=== PATIENT | male | born 1945 | race Caucasian/White ===

== ENCOUNTER → 2017-01-03 | Outpatient (CLI) | payer OTHER ==
[~2017-01-03] MED LIST: ASPI81TA28 PO; CALC-393 PO; CLR10 PO; DLTCD/240 PO; IBUP-103 PO; IRBE1TAB48 PO; PRAV40TA2 PO; TPRSR/100 PO; TRIA37.5 PO
[2017-01-03 17:35] LABS: BASO % 0.2 %; BASO ABS # 0.02 K/uL (0-0.2); COMPLETE YES; EOS % 2.2 %; HEMATOCRIT 45.9 % (42-52); IG% 0.2 %; LYMPH % 25.1 %; LYMPH ABS # 2.04 K/uL (1.2-3.4); MEAN CELL VOLUME 90.2 fL (80-100); MEAN CORPUSCULAR HEMOGLOBIN 29.5 pg (25-34); MEAN CORPUSCULAR HGB CONC 32.7 g/dl (32-36); MEAN PLATELET VOLUME 9.4 fL (7.4-10.4); MONO % 7.7 %; NEUT % 64.6 %; PLATELET COUNT 271 K/uL (130-400); RED BLOOD COUNT 5.09 M/uL (4.7-6.1); WHITE BLOOD COUNT 8.13 K/uL (4.8-10.8)
[2017-01-03 17:45] LABS: URINE APPEARANCE CLEAR (CLEAR); URINE BILIRUBIN NEG (NEG); URINE COLOR YELLOW; URINE NITRITE NEG (NEG); URINE PH 7.5 (4.5-7.5); URINE SPECIFIC GRAVITY 1.015 (1.000-1.030); UROBILINOGEN NEG (NEG); ZZUR CULT IF INDIC CLEAN CATCH NO
[2017-01-03 17:50] LABS: MANUAL MICROSCOPIC REQUIRED? NO; REVIEW REQ? NO
[2017-01-03 18:22] LABS: RATIO 17.6 mcg/mg (0-30.0)
[2017-01-03 19:11] LABS: ALT/SGPT 26 U/L (12-78); AST/SGOT 16 U/L (15-37); BLOOD UREA NITROGEN 19 mg/dl (7-18); BUN/CREATININE RATIO 14.9 (10-20); CALCIUM 9.6 mg/dl (8.5-10.1); CARBON DIOXIDE 31 mmol/L (21-32); CHLORIDE 101 mmol/L (98-107); GLUCOSE 105 mg/dl (70-99); POTASSIUM 4.3 mmol/L (3.5-5.1); SODIUM 140 mmol/L (136-145)
[2017-01-03 19:13] LABS: ALB/GLOB RATIO 0.9 (0.9-2); ALKALINE PHOSPHATASE 93 U/L (45-117); CHOLESTEROL 132 mg/dl (0-200); CHOLESTEROL/HDL RATIO 3.1; HDL CHOLESTEROL 42 mg/dl; LDL CHOLESTEROL CALCULATED 56 mg/dl; TRIGLYCERIDES 168 mg/dl (0-150); VERY LOW DENSITY LIPOPROT CALC 34 mg/dl
[2017-01-04 06:31] LABS: ESTIMATED AVERAGE GLUCOSE 143 mg/dl; HA1C FLAG Normal (Normal)
--- NOTE | 2017-01-08 12:51 | CODING QUERY MEDICAL NECESSITY ---
SUPPORTING DIAGNOSIS NEEDED A supporting diagnosis is required for the test/procedure performed on this patient in order for us to be reimbursed by the patient's insurance. Please provide a supporting diagnosis for the following test/procedure listed below next to the test name along with your signature. *If there is no additional diagnosis for this patient that would support the following test/procedure please document that below next to the test/procedure. Test(s)/Procedure(s) that require a supporting diagnosis: * HEMOGLOBIN A1C DIAGNOSIS: Provider Signature: Date: Thank you Heather Ledesma [employer] Once completed, please kindly fax back to [phone] For questions please call [phone]
== END | disposition home or self-care (01) ==
LOC: C.LABBFT 11:43
PROVIDERS: ATTEND Internal Medicine
DX: I10 Essential (primary) hypertension (principal); E78.00 Pure hypercholesterolemia, unspecified; E11.9 Type 2 diabetes mellitus without complications

== ENCOUNTER 2017-06-28 11:03 | Emergency (ER) | payer OTHER ==
[~2017-06-28] VITALS: Ht 162.6 cm; Wt 149.0 kg
[2017-06-28 11:06] VITALS: TEMP 36.7; Ht 162.6 cm; Wt 149.0 kg
--- NOTE | 2017-06-28 12:13 | EMERGENCY ROOM VISIT NOTE ---
History Report prepared by Sohail: Enrrique Prince Under the Supervision of: Dr. Alden Adkins M.D. First contact with patient: 12:00 Chief Complaint: DIZZY Stated Complaint: DIZZY AND LIGHT HEADED Nursing Triage Summary: pt to the ED with c/o dizziness that started at 10am today no numbness no tingling no c/o weakness no confusion History of Present Illness The patient is a 71 year old male who presents to the Emergency Room with complaints of dizziness that began 2 hours ago and had difficulty walking in a straight line. He denies headache, chest pain, shortness of breath, dysuria, and weakness in limbs. The onset was sudden. Of note, the patient is on Aspirin , Diazepam, and Valium. He denies a history of DM. He reports a history of high blood pressure. He saw his PCP 5 months ago. He is retired and lives with his and enjoys playing with his grandchildren. Source of History: patient Onset: 2 hours ago Position: head Timing: constant Associated Symptoms: No headache, No chest pain, No SOB, No urinary symptoms , No weakness Review of Systems See HPI for pertinent positives & negatives. A total of 10 systems reviewed and were otherwise negative. Past Medical & Surgical Medical Problems: (1) Hypertension Social History Smoking Status: Never Smoker Drug Use: none Marital Status: Housing Status: lives with significant other Occupation Status: retired Current/Historical Medications Scheduled Aspirin (Aspirin Ec), 81 MG PO QAM Calcium Carbonate (Calcium), 600 MG PO QAM Diltiazem Hcl (Diltiazem Cd), 240 MG PO DAILY Irbesartan (Irbesartan), 150 MG PO DAILY Loratadine (Claritin), 10 MG PO DAILY Metoprolol Succinate (Metoprolol Succinate ER), 100 MG PO DAILY Pravastatin Sodium (Pravastatin Sodium), 40 MG PO HS Triamterene/Hctz (Dyazide 37.5MG/25MG), 1 CAP PO DAILY Scheduled PRN Ibuprofen Tab (Advil), 800 MG PO Q8 PRN for Pain Allergies Coded Allergies: Oxycodone (Verified Allergy, Severe, RASH-"ITCH ALL OVER", 06/28/17) Hydrocodone (Verified Allergy, Unknown, RASH-"ITCH ALL OVER", 06/28/17) Physical Exam Vital Signs Date Time Temp Pulse Resp B/P (MAP) Pulse Ox O2 Delivery O2 Flow Rate FiO2 06/28/17 13:21 82 18 138/63 98 06/28/17 12:46 54 20 138/63 96 06/28/17 11:19 69 06/28/17 11:06 36.7 71 18 164/84 95 Room Air Physical Exam GENERAL: Patient is well appearing and in no acute distress. Overweight. HEENT: No acute trauma, normocephalic atraumatic, mucous membranes moist, no nasal congestion, no scleral icterus. NECK: No stridor, no adenopathy, no meningismus, trachea is midline. LUNGS: No dyspnea. Clear to auscultation and equal bilaterally. No wheeze, no rhonchi. HEART: Regular rate and rhythm. No murmurs, rubs, gallops appreciated. ABDOMEN: Soft, nontender, bowel sounds positive, no masses appreciated, no peritonitis. BACK: No midline tenderness, no CVA tenderness EXTREMITIES: Normal motion all extremities, no cyanosis, no edema. NEUROLOGIC: Alert and oriented, no acute motor or sensory deficits, no focal weakness, cranial nerves grossly intact. SKIN: No rash, no jaundice, no diaphoresis. Medical Decision & Procedures Laboratory Results 06/28/17 11:25 Red Blood Count 4.92, Mean Corpuscular Volume 91.3, Mean Corpuscular Hemoglobin 29.9, Mean Corpuscular Hemoglobin Concent 32.7, Mean Platelet Volume 9.4, Neutrophils (%) (Auto) 72.5, Lymphocytes (%) (Auto) 18.5, Monocytes (%) (Auto) 6.7, Eosinophils (%) (Auto) 2.0, Basophils (%) (Auto) 0.2, Neutrophils # (Auto) 5.80, Lymphocytes # (Auto) 1.48, Monocytes # (Auto) 0.54, Eosinophils # (Auto) 0.16, Basophils # (Auto) 0.02 06/28/17 11:25 Test 06/28/17 11:25 White Blood Count 8.01 K/uL (4.8-10.8) Red Blood Count 4.92 M/uL (4.7-6.1) Hemoglobin 14.7 g/dL (14.0-18.0) Hematocrit 44.9 % (42-52) Mean Corpuscular Volume 91.3 fL (80-100) Mean Corpuscular Hemoglobin 29.9 pg (25-34) Mean Corpuscular Hemoglobin Concent 32.7 g/dl (32-36) Platelet Count 257 K/uL (130-400) Mean Platelet Volume 9.4 fL (7.4-10.4) Neutrophils (%) (Auto) 72.5 % Lymphocytes (%) (Auto) 18.5 % Monocytes (%) (Auto) 6.7 % Eosinophils (%) (Auto) 2.0 % Basophils (%) (Auto) 0.2 % Neutrophils # (Auto) 5.80 K/uL (1.4-6.5) Lymphocytes # (Auto) 1.48 K/uL (1.2-3.4) Monocytes # (Auto) 0.54 K/uL (0.11-0.59) Eosinophils # (Auto) 0.16 K/uL (0-0.5) Basophils # (Auto) 0.02 K/uL (0-0.2) RDW Standard Deviation 46.4 fL (36.4-46.3) RDW Coefficient of Variation 13.8 % (11.5-14.5) Immature Granulocyte % (Auto) 0.1 % Immature Granulocyte # (Auto) 0.01 K/uL (0.00-0.02) Anion Gap 3.0 mmol/L (3-11) Est Creatinine Clear Calc Drug Dose 67.6 ml/min Estimated GFR () 62.2 Estimated GFR (Non- 53.6 BUN/Creatinine Ratio 22.4 (10-20) Calcium Level 8.9 mg/dl (8.5-10.1) Troponin I 0.019 ng/ml (0-0.045) Laboratory results as reviewed by me. Medical Decision Differential diagnoses include Benign positional vertigo, Dehydration, Hypovolemia, Anemia, Tumor, Infection, Hypoglycemia, Electrolyte abnormalities, Cardiac sources, Intracerebral event, Toxicologic, Neurologic, as well as others were entertained. 71 yr old male arrived for evaluation of episode of dizziness with some ambulatory disfunction during it. No other symptoms. No vertiginous like symptoms. Currently asymptomatic and feeling well. Admits hadn't eaten this morning prior to this occurring. Looks well with benign exam. Discussed standard of care and he adamantly refuses CT head nor MRI brain given he wishes open MRI with sedation which I can no offer in ED. Labs look good, EKG OK, and patient in no distress. I do not feel this is ACS, PE, dissection. I made it clear to him that I am concerned this might have been TIA and that standard would be to get imaging which he makes clear he will not have done. He also makes clear he is going home. I stressed very heavily need to discuss with PCP and possibly further imaging. I made ti clear he can return at any time if worsening or other concerns. Impression Primary Impression: Dizziness Scribe Attestation The scribe's documentation has been prepared under my direction and personally reviewed by me in its entirety. I confirm that the note above accurately reflects all work, treatment, procedures, and medical decision making performed by me. Departure Information Dispostion Home / Self-Care Referrals Vince Arias M.D. (PCP) Patient Instructions ED Dizziness [facility], My [facility] Additional Instructions It is important you follow up with your primary provider in the next few days for further discussion of your symptoms and what further studies need to be done. Your blood pressure was elevated during this visit. This is quite common in many people who are being evaluated in the Emergency Department for many reasons. However, it is important that you have your Primary Care Provider recheck your blood pressure and discuss whether treatment will be needed. assisted elevated blood pressure can lead to strokes, heart attacks, kidney failure amongst other medical issues. If you develop severe headaches, chest pain, weakness in arms or legs, or other concerning symptoms call 911.
[2017-06-28 12:23] LABS: BASO % 0.2 %; BASO ABS # 0.02 K/uL (0-0.2); COMPLETE YES; HEMATOCRIT 44.9 % (42-52); IG% 0.1 %; LYMPH % 18.5 %; LYMPH ABS # 1.48 K/uL (1.2-3.4); MEAN CELL VOLUME 91.3 fL (80-100); MEAN CORPUSCULAR HEMOGLOBIN 29.9 pg (25-34); MEAN CORPUSCULAR HGB CONC 32.7 g/dl (32-36); MEAN PLATELET VOLUME 9.4 fL (7.4-10.4); MONO % 6.7 %; NEUT % 72.5 %; PLATELET COUNT 257 K/uL (130-400); RED BLOOD COUNT 4.92 M/uL (4.7-6.1); WHITE BLOOD COUNT 8.01 K/uL (4.8-10.8)
--- NOTE | 2017-06-28 12:37 | DIAGNOSTIC IMAGING REPORT ---
CHEST ONE VIEW PORTABLE CLINICAL HISTORY: Generalized Weakness dyspnea COMPARISON STUDY: 04/16/2016 FINDINGS: Mild stable cardiomegaly. Lungs are clear. Mild chronic elevation right hemidiaphragm. IMPRESSION: Chronic change. No acute process. The above report was generated using voice recognition software. It may contain grammatical, syntax or spelling errors. Electronically signed by: Efe Vyas M.D. 06/28/2017 12:36 PM Dictated Date/Time: 06/28/2017 12:35 PM
[2017-06-28 12:41] LABS: BUN/CREATININE RATIO 22.4 (10-20); CALCIUM 8.9 mg/dl (8.5-10.1); CREATININE 1.31 mg/dl (0.60-1.40); POTASSIUM 3.8 mmol/L (3.5-5.1)
[2017-06-28 13:21] VITALS: BP 138/63; PULSE 82; O2SAT 98
== END 2017-06-28 13:22 | disposition home or self-care (01) ==
LOC: C.EDB 11:05 → C.EDA 13:22
DX: R42 Dizziness and giddiness (principal); I10 Essential (primary) hypertension; Z79.82 Long term (current) use of aspirin

== ENCOUNTER 2017-07-02 09:36 | Emergency (ER) | payer OTHER ==
[~2017-07-02] VITALS: Ht 162.6 cm; Wt 149.5 kg
[2017-07-02 09:38] VITALS: TEMP 36.4; Ht 162.6 cm; Wt 149.5 kg
[2017-07-02] MEDS ORDERED: SODIUM CHLORIDE 0.9% 1000ML 1,000 ML IV STA (10:22)
[2017-07-02] MEDS ORDERED: MECLIZINE HCL 25 MG TAB PO STA (10:22)
--- NOTE | 2017-07-02 10:32 | EMERGENCY ROOM VISIT NOTE ---
History Report prepared by Sohail: Clay Khan Under the Supervision of: Dr. Anthony Wren M.D. First contact with patient: 10:17 Chief Complaint: DIZZY Stated Complaint: DIZZY Nursing Triage Summary: Pt reports this morning he was dizzy and nauseous, worsens when walking. Reports he was here for dizziness and didn't get his CT. Pt states "I just want that, no blood work at all because that was fine on ." History of Present Illness The patient is a 71 year old male who presents to the Emergency Room with complaints of dizziness that began this morning. He was seen in the ER four days ago for these same symptoms. They recommended a CT scan of his head, but he refused because he is claustrophobic. He was discharged and felt better for the next couple of days. However, this morning he woke up feeling the same way he did last week. He describes his dizziness as lightheadedness that is associated with walking. He is also having some nausea which made him experience a small episode of emesis this morning. He denies any fevers, chills , cough, headache, chest pain, shortness of breath, abdominal pain, back pain, diarrhea, weakness, numbness, melena, hematochezia, or abnormal urinary symptoms. While he is lying down, he does not experience his dizziness. He also denies an changes to his vision or hearing as well. He has never had a heart attack or a stroke. He is currently taking Aspirin PO daily without any other blood thinners. Source of History: patient Onset: this morning Position: other (Global) Symptom Intensity: moderate Quality: other (Dizziness) Timing: constant Modifying Factors (Worsening): movement Modifying Factors (Relieving): rest Associated Symptoms: + nausea, + vomiting, No fevers, No chills, No headache , No cough, No chest pain, No SOB, No abdominal pain, No back pain, No melena, No diarrhea, No urinary symptoms, No weakness, No numbness Note: hH denies any changes to his vision and hearing. Review of Systems See HPI for pertinent positives and negatives. A total of ten systems were reviewed and were otherwise negative. Past Medical & Surgical Medical Problems: (1) Hypertension Family History Omitted secondary to the patient's age. Social History Smoking Status: Never Smoker Smokeless Tobacco Use: No Drug Use: none Marital Status: Housing Status: lives with significant other Occupation Status: retired Current/Historical Medications Scheduled Aspirin (Aspirin Ec), 81 MG PO QAM Calcium Carbonate (Calcium), 600 MG PO QAM Diltiazem Hcl (Diltiazem Cd), 240 MG PO DAILY Irbesartan (Irbesartan), 150 MG PO DAILY Loratadine (Claritin), 10 MG PO DAILY Metoprolol Succinate (Metoprolol Succinate ER), 100 MG PO DAILY Pravastatin Sodium (Pravastatin Sodium), 40 MG PO HS Triamterene/Hctz (Dyazide 37.5MG/25MG), 1 CAP PO DAILY Scheduled PRN Ibuprofen Tab (Advil), 800 MG PO Q8 PRN for Pain Meclizine Hcl (Meclizine Hcl), 25 MG PO TID PRN for Dizziness Allergies Coded Allergies: Oxycodone (Verified Allergy, Severe, RASH-"ITCH ALL OVER", 07/02/17) Hydrocodone (Verified Allergy, Unknown, RASH-"ITCH ALL OVER", 07/02/17) Physical Exam Vital Signs Date Time Temp Pulse Resp B/P (MAP) Pulse Ox O2 Delivery O2 Flow Rate FiO2 07/02/17 16:52 58 16 146/84 95 07/02/17 16:39 58 16 146/84 95 Room Air 07/02/17 14:42 60 146/97 95 Room Air 07/02/17 13:10 71 20 189/77 95 Room Air 07/02/17 11:38 Room Air 07/02/17 11:12 62 17 137/62 95 Room Air 07/02/17 10:04 75 07/02/17 09:38 36.4 78 16 186/87 94 Room Air Physical Exam GENERAL: Awake, alert, well-appearing, in no distress HENT: Normocephalic, atraumatic. Oropharynx reveals dry mucous membranes. EYES: Normal conjunctiva. Sclera non-icteric. NECK: Supple. No nuchal rigidity. FROM. No JVD. RESPIRATORY: Clear to auscultation. CARDIAC: Regular rate, normal rhythm. Extremities warm and well perfused. Pulses equal. ABDOMEN: Soft, obese, non-distended. No tenderness to palpation. No rebound or guarding. No masses. RECTAL: Deferred. MUSCULOSKELETAL: Chest examination reveals no tenderness. The back is symmetrical on inspection without obvious abnormality. There is no CVA tenderness to palpation. No joint edema. LOWER EXTREMITIES: Calves are equal size bilaterally and non-tender. No edema. No discoloration. NEURO: Normal sensorium. No sensory or motor deficits noted. SKIN: No rash or jaundice noted. Medical Decision & Procedures ER Provider Diagnostic Interpretation: Radiology results as stated below per my review and radiologist interpretation: ANGIOGRAPHY HEAD COMBO CLINICAL HISTORY: Dizziness. Ataxia. COMPARISON STUDY: No previous studies for comparison. TECHNIQUE: Unenhanced and arterial phase imaging of the head was performed. Injection of 94 cc Optiray 320 IV was uneventful. Sagittal and coronal reconstructions were viewed as well as maximal intensity projections on an independent 3-D workstation. FINDINGS: No acute intracranial hemorrhage, midline shift or mass effect is present. Ventricular system is normal. Basilar cisterns are patent. There are no extra-axial collections. Craven-white differentiation is maintained. There are no findings to suggest acute dural sinus thrombosis or acute territorial infarct. There are no significant calvarial abnormalities. Visualized portions of the sinuses and mastoid air cells are clear. The bilateral M1, M2, A1 and A2 segments are patent. There is moderate atherosclerotic plaque within the bilateral cavernous carotids without significant stenosis. Note is made of a right posterior to indicating and an anterior communicating artery. No abrupt vessel cut off is identified. The right vertebral artery is diminutive. Left vertebral artery is dominant. Basilar artery and bilateral posterior cerebral arteries are patent. IMPRESSION: 1. No acute intracranial findings. 2. No intracranial aneurysm or abrupt vessel cut off. 3. Dominant left vertebral artery. Diminutive right vertebral artery, likely on a congenital basis. Electronically signed by: Minor Potter M.D. 07/02/2017 2:09 PM Dictated Date/Time: 07/02/2017 1:58 PM CHEST ONE VIEW PORTABLE CLINICAL HISTORY: 71 years-old Male presenting with CHEST PAIN. TECHNIQUE: Portable upright AP view of the chest was obtained. COMPARISON: 06/28/2017. FINDINGS: Cardiac silhouette top normal in size, unchanged. Mild pulmonary vascular prominence in the upper lobes, slightly increased from prior. Suggestion of mild bronchial wall cuffing. Elevation of the right hemidiaphragm, unchanged. Subtle vague perihilar opacities greater on the left. No large pleural effusion or pneumothorax. Degenerative changes of the right glenohumeral and bilateral acromioclavicular joints. Upper abdomen normal. IMPRESSION: 1. Suggestion of mild volume overload with early pulmonary edema. Infection in the left lower lobe cannot be excluded. Electronically signed by: Elias Mcgregor M.D. 07/02/2017 10:55 AM Dictated Date/Time: 07/02/2017 10:53 AM NECK ANGIO WITH CONTRAST CLINICAL HISTORY: 71 years-old Male presenting with dizziness and ataxia. TECHNIQUE: Multidetector CT angiography of the neck was performed after the administration of intravenous contrast. 3-D volumetric and/or maximum intensity projection (MIP) images were subsequently reconstructed for review. IV contrast: 94 mL of Optiray 320. A dose lowering technique was used consistent with the principles of ALARA (as low as reasonably achievable). Stenosis measurements were based on NASCET-like criteria. COMPARISON: None. CT DOSE (mGy.cm): The estimated cumulative dose is 1360.68 inclusive of the CTA head. 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 Three-vessel aortic arch with atherosclerosis of the arch though patent origins of the branch vessels. Bilateral common carotid arteries patent. Calcified and noncalcified atherosclerotic plaque noted at the bilateral carotid bulbs, left greater than right. Narrowing of the proximal right internal carotid artery with low density atherosclerotic plaque resulting in a minimum diameter of 2.7 mm in comparison to the normal distal diameter of 6.1 mm (55% stenosis) the remainder of the right internal carotid artery is widely patent though tortuous at the skull base. Only minimal narrowing of the proximal left internal carotid artery despite the presence of greater atherosclerotic plaque at the left carotid bulb. Tortuosity of the distal left ICA at the skull base also noted. Left dominant vertebral artery. The bilateral vertebral arteries have patent origins and courses. The right vertebral artery contribute to the basilar artery, which is patent. No evidence of dissection or aneurysm. Soft tissues of the neck demonstrate no lymphadenopathy and are within normal limits. Limited intracranial evaluation within normal limits. Paranasal sinuses and mastoid air cells clear. Degenerative changes of the cervical spine. Lung apices clear. IMPRESSION: No evidence of dissection or aneurysm in the cervical vessels. 55% stenosis of the proximal right ICA with the remainder of the cervical vessels widely patent. Electronically signed by: Elias Mcgregor M.D. 07/02/2017 2:07 PM Dictated Date/Time: 07/02/2017 2:02 PM Laboratory Results 07/02/17 10:55 Red Blood Count 5.05, Mean Corpuscular Volume 89.7, Mean Corpuscular Hemoglobin 29.5, Mean Corpuscular Hemoglobin Concent 32.9, Mean Platelet Volume 9.1, Neutrophils (%) (Auto) 74.5, Lymphocytes (%) (Auto) 15.4, Monocytes (%) (Auto) 8.4, Eosinophils (%) (Auto) 1.1, Basophils (%) (Auto) 0.1, Neutrophils # (Auto) 5.84, Lymphocytes # (Auto) 1.21, Monocytes # (Auto) 0.66, Eosinophils # (Auto) 0.09, Basophils # (Auto) 0.01 07/02/17 10:55 Test 07/02/17 10:55 White Blood Count 7.85 K/uL (4.8-10.8) Red Blood Count 5.05 M/uL (4.7-6.1) Hemoglobin 14.9 g/dL (14.0-18.0) Hematocrit 45.3 % (42-52) Mean Corpuscular Volume 89.7 fL (80-100) Mean Corpuscular Hemoglobin 29.5 pg (25-34) Mean Corpuscular Hemoglobin Concent 32.9 g/dl (32-36) Platelet Count 250 K/uL (130-400) Mean Platelet Volume 9.1 fL (7.4-10.4) Neutrophils (%) (Auto) 74.5 % Lymphocytes (%) (Auto) 15.4 % Monocytes (%) (Auto) 8.4 % Eosinophils (%) (Auto) 1.1 % Basophils (%) (Auto) 0.1 % Neutrophils # (Auto) 5.84 K/uL (1.4-6.5) Lymphocytes # (Auto) 1.21 K/uL (1.2-3.4) Monocytes # (Auto) 0.66 K/uL (0.11-0.59) Eosinophils # (Auto) 0.09 K/uL (0-0.5) Basophils # (Auto) 0.01 K/uL (0-0.2) RDW Standard Deviation 44.9 fL (36.4-46.3) RDW Coefficient of Variation 13.8 % (11.5-14.5) Immature Granulocyte % (Auto) 0.5 % Immature Granulocyte # (Auto) 0.04 K/uL (0.00-0.02) Urine Color YELLOW Urine Appearance CLEAR (CLEAR) Urine pH 5.0 (4.5-7.5) Urine Specific [place] 1.016 (1.000-1.030) Urine Protein NEG (NEG) Urine Glucose (UA) NEG (NEG) Urine Ketones NEG (NEG) Urine Occult Blood NEG (NEG) Urine Nitrite NEG (NEG) Urine Bilirubin NEG (NEG) Urine Urobilinogen NEG (NEG) Urine Leukocyte Esterase SMALL (NEG) Urine WBC (Auto) 1-5 /hpf (0-5) Urine RBC (Auto) 0-4 /hpf (0-4) Urine Hyaline Casts (Auto) 0 /lpf (0-5) Urine Epithelial Cells (Auto) 10-20 /lpf (0-5) Urine Bacteria (Auto) NEG (NEG) Anion Gap 6.0 mmol/L (3-11) Est Creatinine Clear Calc Drug Dose 66.2 ml/min Estimated GFR () 60.5 Estimated GFR (Non- 52.2 BUN/Creatinine Ratio 13.2 (10-20) Calcium Level 8.7 mg/dl (8.5-10.1) Total Bilirubin 0.3 mg/dl (0.2-1) Direct Bilirubin < 0.1 mg/dl (0-0.2) Aspartate Amino Transf (AST/SGOT) 13 U/L (15-37) Alanine Aminotransferase (ALT/SGPT) 26 U/L (12-78) Alkaline Phosphatase 115 U/L (45-117) Troponin I < 0.015 ng/ml (0-0.045) Pro-B-Type Natriuretic Peptide 63 pg/ml (0-900) Total Protein 7.7 gm/dl (6.4-8.2) Albumin 3.3 gm/dl (3.4-5.0) Lipase 98 U/L (73-393) Laboratory results reviewed by me Medications Administered Medications (Trade) Dose Ordered Sig/Frank Route Start Time Stop Time Status Last Admin Dose Admin Sodium Chloride 1,000 ml @ 999 mls/hr Q1H1M STAT IV 07/02/17 10:22 07/02/17 11:22 DC 07/02/17 11:19 999 MLS/HR Meclizine HCl (Antivert Tab) 25 mg NOW STAT PO 07/02/17 10:22 07/02/17 10:28 DC 07/02/17 11:18 25 MG Lorazepam (Ativan Tab) 0.5 mg NOW STAT SL 07/02/17 12:24 07/02/17 12:25 DC 07/02/17 12:52 0.5 MG ECG Indication: other (Dizziness) Rate (beats per minute): 61 Rhythm: sinus rhythm Findings: 1st degree AV block, no acute ischemic change, other (normal axis) ED Course 1017: The patient was evaluated in room B5. A complete history and physical exam was performed. 1652: I reevaluated the patient. Discussed results and discharge instructions: He verbalized understanding and agreement. The patient is ready for discharge. Medical Decision I reviewed the patient's past medical history, medications, and the nursing notes as described above. Differential diagnosis includes but is not limited to: peripheral vs central vertigo, dehydration, electrolyte abnormal, arrhythmia, ACS, pneumonia, bronchitis, and UTI. The patient is a 71-year-old gentleman who presents to the emergency department. Episode of dizziness which began this morning at being seen in emergency department several days ago for the same per history of present illness. The patient's prior visit the patient declined CT and MRI because he has severe claustrophobia. Today patient is agreeable for CT scan but not MRI. CTA of the head and neck unremarkable for any infarcts or significant large vessel occlusion. Labs unremarkable including WBC, troponin, BNP within normal limits. Chest x-ray read as a questionable volume overload however given normal BNP and lack of respiratory symptoms and normal saturation on RA it is reasonable for the patient to follow up with his PCP regarding these findings. Moreover, patient feeling improved after IV fluids and meclizine. Findings and plan for follow-up reviewed with patient. Patient agreeable and d/c'd per discharge instructions. Medication Reconcilliation Current Medication List: was personally reviewed by me Blood Pressure Screening Patient's blood pressure: Elevated blood pressure Blood pressure disposition: Elevated BP felt to be situational Impression Primary Impression: Dizziness Scribe Attestation The scribe's documentation has been prepared under my direction and personally reviewed by me in its entirety. I confirm that the note above accurately reflects all work, treatment, procedures, and medical decision making performed by me. Departure Information Dispostion Home / Self-Care Prescriptions Meclizine Hcl (MECLIZINE HCL) 25 Mg Tab 25 MG PO TID Y for Dizziness, #21 TAB Prov: Anthony Wren M.D. 07/02/17 Referrals Vince Arias M.D. (PCP) Forms HOME CARE DOCUMENTATION FORM, IMPORTANT VISIT INFORMATION Patient Instructions Dizziness Balance Probs Fainting, My [facility] [employer] Additional Instructions Please follow up with your primary care physician in the next 1-3 days for re- evaluation. Your CT scan did show some vessel narrowing but no significant narrowing. The cause of your symptoms is unclear at this time however may be related to vertigo. Otherwise, your exam, EKG, chest xray, CTA of your head and neck, and lab results did not show signs of an emergent condition at this time. Meclizine as needed for dizziness/vertigo symptoms. Return to the emergency department for worsening symptoms as described in the accompanying instructions. ---- NECK ANGIO WITH CONTRAST CLINICAL HISTORY: 71 years-old Male presenting with dizziness and ataxia. TECHNIQUE: Multidetector CT angiography of the neck was performed after the administration of intravenous contrast. 3-D volumetric and/or maximum intensity projection (MIP) images were subsequently reconstructed for review. IV contrast: 94 mL of Optiray 320. A dose lowering technique was used consistent with the principles of ALARA (as low as reasonably achievable). Stenosis measurements were based on NASCET-like criteria. COMPARISON: None. CT DOSE (mGy.cm): The estimated cumulative dose is 1360.68 inclusive of the CTA head. 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 Three-vessel aortic arch with atherosclerosis of the arch though patent origins of the branch vessels. Bilateral common carotid arteries patent. Calcified and noncalcified atherosclerotic plaque noted at the bilateral carotid bulbs, left greater than right. Narrowing of the proximal right internal carotid artery with low density atherosclerotic plaque resulting in a minimum diameter of 2.7 mm in comparison to the normal distal diameter of 6.1 mm (55% stenosis) the remainder of the right internal carotid artery is widely patent though tortuous at the skull base. Only minimal narrowing of the proximal left internal carotid artery despite the presence of greater atherosclerotic plaque at the left carotid bulb. Tortuosity of the distal left ICA at the skull base also noted. Left dominant vertebral artery. The bilateral vertebral arteries have patent origins and courses. The right vertebral artery contribute to the basilar artery, which is patent. No evidence of dissection or aneurysm. Soft tissues of the neck demonstrate no lymphadenopathy and are within normal limits. Limited intracranial evaluation within normal limits. Paranasal sinuses and mastoid air cells clear. Degenerative changes of the cervical spine. Lung apices clear.
--- NOTE | 2017-07-02 10:56 | DIAGNOSTIC IMAGING REPORT ---
CHEST ONE VIEW PORTABLE CLINICAL HISTORY: 71 years-old Male presenting with CHEST PAIN. TECHNIQUE: Portable upright AP view of the chest was obtained. COMPARISON: 06/28/2017. FINDINGS: Cardiac silhouette top normal in size, unchanged. Mild pulmonary vascular prominence in the upper lobes, slightly increased from prior. Suggestion of mild bronchial wall cuffing. Elevation of the right hemidiaphragm, unchanged. Subtle vague perihilar opacities greater on the left. No large pleural effusion or pneumothorax. Degenerative changes of the right glenohumeral and bilateral acromioclavicular joints. Upper abdomen normal. IMPRESSION: 1. Suggestion of mild volume overload with early pulmonary edema. Infection in the left lower lobe cannot be excluded. Electronically signed by: Elias Mcgregor M.D. 07/02/2017 10:55 AM Dictated Date/Time: 07/02/2017 10:53 AM
[2017-07-02 11:27] LABS: BASO % 0.1 %; BASO ABS # 0.01 K/uL (0-0.2); COMPLETE YES; EOS % 1.1 %; HEMATOCRIT 45.3 % (42-52); IG% 0.5 %; LYMPH % 15.4 %; LYMPH ABS # 1.21 K/uL (1.2-3.4); MEAN CELL VOLUME 89.7 fL (80-100); MEAN CORPUSCULAR HEMOGLOBIN 29.5 pg (25-34); MEAN CORPUSCULAR HGB CONC 32.9 g/dl (32-36); MEAN PLATELET VOLUME 9.1 fL (7.4-10.4); MONO % 8.4 %; NEUT % 74.5 %; PLATELET COUNT 250 K/uL (130-400); RED BLOOD COUNT 5.05 M/uL (4.7-6.1); WHITE BLOOD COUNT 7.85 K/uL (4.8-10.8)
[2017-07-02 11:43] LABS: ALT/SGPT 26 U/L (12-78); AST/SGOT 13 U/L (15-37); BLOOD UREA NITROGEN 18 mg/dl (7-18); BUN/CREATININE RATIO 13.2 (10-20); CALCIUM 8.7 mg/dl (8.5-10.1); CARBON DIOXIDE 31 mmol/L (21-32); CHLORIDE 95 mmol/L (98-107); CREATININE 1.34 mg/dl (0.60-1.40); GLUCOSE 160 mg/dl (70-99); POTASSIUM 3.8 mmol/L (3.5-5.1); SODIUM 132 mmol/L (136-145)
[2017-07-02 11:48] LABS: ALKALINE PHOSPHATASE 115 U/L (45-117)
[2017-07-02] MEDS ORDERED: LORAZEPAM 0.5 MG TAB SL STA (12:24)
[2017-07-02 12:29] LABS: URINE APPEARANCE CLEAR (CLEAR); URINE BILIRUBIN NEG (NEG); URINE COLOR YELLOW; URINE NITRITE NEG (NEG); URINE SPECIFIC GRAVITY 1.016 (1.000-1.030); UROBILINOGEN NEG (NEG); ZZUR CULT IF INDIC CLEAN CATCH NO
[2017-07-02 12:32] LABS: MANUAL MICROSCOPIC REQUIRED? NO; REVIEW REQ? NO
[2017-07-02] MEDS ORDERED: OPTIRAY 320 IV PRN (14:00)
--- NOTE | 2017-07-02 14:09 | DIAGNOSTIC IMAGING REPORT ---
NECK ANGIO WITH CONTRAST CLINICAL HISTORY: 71 years-old Male presenting with dizziness and ataxia. TECHNIQUE: Multidetector CT angiography of the neck was performed after the administration of intravenous contrast. 3-D volumetric and/or maximum intensity projection (MIP) images were subsequently reconstructed for review. IV contrast: 94 mL of Optiray 320. A dose lowering technique was used consistent with the principles of ALARA (as low as reasonably achievable). Stenosis measurements were based on NASCET-like criteria. COMPARISON: None. CT DOSE (mGy.cm): The estimated cumulative dose is 1360.68 inclusive of the CTA head. 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 Three-vessel aortic arch with atherosclerosis of the arch though patent origins of the branch vessels. Bilateral common carotid arteries patent. Calcified and noncalcified atherosclerotic plaque noted at the bilateral carotid bulbs, left greater than right. Narrowing of the proximal right internal carotid artery with low density atherosclerotic plaque resulting in a minimum diameter of 2.7 mm in comparison to the normal distal diameter of 6.1 mm (55% stenosis) the remainder of the right internal carotid artery is widely patent though tortuous at the skull base. Only minimal narrowing of the proximal left internal carotid artery despite the presence of greater atherosclerotic plaque at the left carotid bulb. Tortuosity of the distal left ICA at the skull base also noted. Left dominant vertebral artery. The bilateral vertebral arteries have patent origins and courses. The right vertebral artery contribute to the basilar artery, which is patent. No evidence of dissection or aneurysm. Soft tissues of the neck demonstrate no lymphadenopathy and are within normal limits. Limited intracranial evaluation within normal limits. Paranasal sinuses and mastoid air cells clear. Degenerative changes of the cervical spine. Lung apices clear. IMPRESSION: No evidence of dissection or aneurysm in the cervical vessels. 55% stenosis of the proximal right ICA with the remainder of the cervical vessels widely patent. Electronically signed by: Elias Mcgregor M.D. 07/02/2017 2:07 PM Dictated Date/Time: 07/02/2017 2:02 PM
--- NOTE | 2017-07-02 14:10 | DIAGNOSTIC IMAGING REPORT ---
ANGIOGRAPHY HEAD COMBO CLINICAL HISTORY: Dizziness. Ataxia. COMPARISON STUDY: No previous studies for comparison. TECHNIQUE: Unenhanced and arterial phase imaging of the head was performed. Injection of 94 cc Optiray 320 IV was uneventful. Sagittal and coronal reconstructions were viewed as well as maximal intensity projections on an independent 3-D workstation. FINDINGS: No acute intracranial hemorrhage, midline shift or mass effect is present. Ventricular system is normal. Basilar cisterns are patent. There are no extra-axial collections. Craven-white differentiation is maintained. There are no findings to suggest acute dural sinus thrombosis or acute territorial infarct. There are no significant calvarial abnormalities. Visualized portions of the sinuses and mastoid air cells are clear. The bilateral M1, M2, A1 and A2 segments are patent. There is moderate atherosclerotic plaque within the bilateral cavernous carotids without significant stenosis. Note is made of a right posterior to indicating and an anterior communicating artery. No abrupt vessel cut off is identified. The right vertebral artery is diminutive. Left vertebral artery is dominant. Basilar artery and bilateral posterior cerebral arteries are patent. IMPRESSION: 1. No acute intracranial findings. 2. No intracranial aneurysm or abrupt vessel cut off. 3. Dominant left vertebral artery. Diminutive right vertebral artery, likely on a congenital basis. Electronically signed by: Minor Potter M.D. 07/02/2017 2:09 PM Dictated Date/Time: 07/02/2017 1:58 PM
[2017-07-02] MEDS ORDERED: MECL1TAB42 PO (16:37)
[2017-07-02 16:52] VITALS: BP 146/84; PULSE 58; O2SAT 95
== END 2017-07-02 16:52 | disposition home or self-care (01) ==
LOC: C.EDB 09:37
DX: R42 Dizziness and giddiness (principal); F40.240 Claustrophobia; I10 Essential (primary) hypertension; Z79.82 Long term (current) use of aspirin

== ENCOUNTER → 2017-11-12 | Outpatient (CLI) | payer OTHER ==
[~2017-11-12] MED LIST changes: +MECL1TAB42 PO
[2017-11-13 06:45] LABS: HEMOGLOBIN A1C 6.8 % (4.5-5.6)
== END | disposition home or self-care (01) ==
LOC: C.LABBFT 15:46
PROVIDERS: ATTEND Internal Medicine
DX: E11.9 Type 2 diabetes mellitus without complications (principal)

== ENCOUNTER 2025-01-13 08:50 | Observation (INO) ==
--- NOTE | 2024-12-09 13:24 | PAT Medication Instructions ---
Medication Instructions Date of Service December 09, 2024 Home Medications Medication Instructions Recorded blood-glucose meter (OneTouch #1 ea 05/04/20 Verio Flex Start kit) irbesartan 300 mg tablet 300 mg PO QAM #90 tabs 03/31/24 labetalol 200 mg tablet 200 mg PO BID #180 tabs 04/30/24 metformin 500 mg tablet 500 mg PO BID #180 tabs 08/13/24 celecoxib 100 mg capsule (Celebrex) 100 mg PO BID #60 caps 12/01/24 oxycodone 5 mg tablet 5 mg PO Q8H PRN pain #30 tabs 12/01/24 aspirin 81 mg tablet,delayed release 81 mg PO QAM calcium carbonate 600 mg PO QAM multivitamin 1 tab PO QAM irbesartan 300 mg tablet 300 mg PO QAM labetalol 200 mg tablet 200 mg PO BID metformin 500 mg tablet 500 mg PO BID celecoxib 100 mg capsule (Celebrex) 100 mg PO BID oxycodone 5 mg tablet 5 mg PO Q8H PRN pain chlorthalidone 50 mg tablet 50 mg PO QAM nifedipine 30 mg tablet,extended release 30 mg PO QAM simvastatin 40 mg tablet 40 mg PO HS ASK your surgeon for instructions celecoxib 100 mg capsule (Celebrex) 100 mg PO BID ASK your prescriber and surgeon aspirin 81 mg tablet,delayed release 81 mg PO QAM DO NOT take the morning of surgery calcium carbonate 600 mg PO QAM multivitamin 1 tab PO QAM irbesartan 300 mg tablet 300 mg PO QAM metformin 500 mg tablet 500 mg PO BID chlorthalidone 50 mg tablet 50 mg PO QAM Take morning of surgery With a small sip of water, OTHERWISE NOTHING TO EAT OR DRINK AFTER MIDNIGHT: labetalol 200 mg tablet 200 mg PO BID oxycodone 5 mg tablet 5 mg PO Q8H PRN pain (if needed) nifedipine 30 mg tablet,extended release 30 mg PO QAM Take evening before surgery labetalol 200 mg tablet 200 mg PO BID metformin 500 mg tablet 500 mg PO BID oxycodone 5 mg tablet 5 mg PO Q8H PRN pain (if needed) simvastatin 40 mg tablet 40 mg PO HS Other Notes If you have any questions please call us at [phone] or [phone] or [phone] or [phone]
--- NOTE | 2024-12-18 13:25 | Anesthesiology Consultation ---
Date of Service December 18, 2024 Assessment & Plan (1) Encounter for pre-operative examination: - awaiting CXR report and [place] PCP clearance. If CXR is unremarkable and patient is cleared by [place] PCP, he is acceptable to proceed with left KEE. - Case discussed in detail with Dr. Romero who advised patient should have medical clearance prior to surgery. Workload note sent to [place] PCP including that CXR report is still pending. Patient made aware, denied questions or concerns. Surgeon's office made aware. - check BSG am DOS. - cardiology office visit 05/29/24 [place]: "...Bradycardia: He had significant bradycardia (although I do not believe symptomatic) on diltiazem and labetalol. Calcium blockade and beta-blockade can certainly cause this, he could indicate underlying sinus node dysfunction but not necessarily. I think his current he art rate is acceptable and I am not too concerned about it so I think leaving him on labetalol and irbesartan is acceptable. Hypertension: His blood pressure is somewhat elevated, mostly in the systolic component here which can occur with age. At home understands blood pressure can be 145/78 and 152/80 as several examples, which would probably be acceptable at his age. Still I think it might be worthwhile to add a calcium channel mabel but not 1 that affect sinus node function, therefore I am going to add a low-dose of nifedipine ER...did caution him about leg swelling. I would not be too concerned about a systolic blood pressure in the 140s at his age, especially given a normal diastolic blood pressure..." - Outpatient joint assessment: Patient is currently scheduled for inpatient p athway. If re-evaluated and patient/surgeon requests outpatient pathway, patient is not an acceptable candidate for outpatient joint program. Chart Review Chart Review: Pending: Refer to Additional Notes / Consult section and Patient seen in Pre Admission Testing Teaching & Discussion Pre-Anesthesia Teaching/Discussion Notes: Instructed NPO after midnight before surgery, except medications with 15 cc of water. Medication instructions provided according to the PAT guidelines. History Surgery Operation Date: 01/13/25 08:50 Proposed Procedures p Left Total Hip Arthroplasty - Liam Santiago MD Height/Weight Height: 5 ft 4 in Weight: 132 kg Allergies Allergy/AdvReac Type Severity Reaction Status Date / Time alfuzosin Allergy Mild itching Verified 12/05/24 11:18 Medications Home Medications Medication Instructions Recorded Confirmed Last Taken aspirin 81 mg tablet,delayed 81 mg PO QAM 04/27/19 12/05/24 01/11/21 release calcium carbonate 600 mg PO QAM 04/27/19 12/05/24 01/12/21 blood-glucose meter (OneTouch #1 ea 05/04/20 11/13/24 Unknown Verio Flex Start kit) multivitamin 1 tab PO QAM 01/07/21 12/05/24 01/12/21 irbesartan 300 mg tablet 300 mg PO QAM #90 tabs 03/31/24 12/05/24 Unknown labetalol 200 mg tablet 200 mg PO BID #180 tabs 04/30/24 12/05/24 Unknown metformin 500 mg tablet 500 mg PO BID #180 tabs 08/13/24 12/05/24 Unknown celecoxib 100 mg capsule (Celebrex) 100 mg PO BID #60 caps 12/01/24 12/05/24 Unknown oxycodone 5 mg tablet 5 mg PO Q8H PRN pain #30 tabs 12/01/24 12/05/24 Unknown chlorthalidone 50 mg tablet 50 mg PO QAM 12/05/24 12/05/24 Unknown nifedipine 30 mg tablet,extended 30 mg PO QAM 12/05/24 12/05/24 Unknown release simvastatin 40 mg tablet 40 mg PO HS 12/05/24 12/05/24 Unknown Past Medical History Medical History (Updated 12/18/24 @ 16:19 by Chanda Francois PA-C) BPH (benign prostatic hyperplasia) Carotid artery stenosis < 50% stenosis ICAs Diabetes History of bradycardia Hypercholesterolemia Hypertension controlled, stable stable per pt Osteoarthritis Renal insufficiency pt unaware Tubular adenoma of colon 2019 Patient denies h/o stroke, seizures, heart attack, heart failure, blood clots/DVTs or blood transfusions. Exercise / Class Metabolic Activity III < 4 Walking/Shop/Light housework (denies chest discomfort or shortness of breath with usual activities) Past Family History Family History Sister Cervix cancer Mother No problems noted. Father Prostate cancer Brother Coronary heart disease Sister Cancer possibly post doctoral researcher malignancy Other No family history of adverse response to anesthesia Denies family history of Ovarian cancer Myocardial infarction Breast cancer Colorectal cancer Past Surgical History Surgical History Fusion of spine lumbar History of colonoscopy History of repair of rotator cuff x2 to right History of surgery on left wrist Past Anesthesia History No Hx of Anesthesia Complications and No Family Hx of Anesthesia Complications History of PONV No Hx of PONV and No Hx of Motion Sickness Social History Smoking Status: Never smoker Do You Dip or Chew Tobacco: No Hx Alcohol Use: Yes Alcohol type: beer alcohol intake frequency: holidays/special occasions only Hx Substance Use: No substance use type: does not use Review of Systems Patient denies chest pain, shortness of breath, dyspnea on exertion, snoring, witnessed apneas, reflux, fever, chills, cough, wheezing, dizziness, lightheadedness, visual changes or palpitations. Physical Exam Vital Signs Vitals BP 155/84 P 50 TEMP 97.6 SP02 94% on RA RESP 19 Physical Patient resting comfortably in chair in no acute distress, alert and oriented, responding appropriately throughout visit Full cervical extension range of motion without pain TMD 3 finger breadths Mallampati Score 3 Dentition: several chipped teeth, denies loose teeth, caps/crowns, implants or bridges Lungs: normal respiratory effort. Good air movement, clear throughout to auscultation, no adventitious breath sounds Cardiac: bradycardic, regular rhythm, no murmurs noted Carotid arteries: negative bruit bilat Lab Results Anesthesia Preop Results Results Anesthesia Widget: WBC 8.73 K/ul (4.8-10.8) 12/18/24 Hgb 11.5 g/dl (14.0-18.0) L 12/18/24 Hct 36.1 % (42.0-52.0) L 12/18/24 Plt 287 K/uL (130-400) 12/18/24 Na 141 mmol/L (136-145) 12/18/24 K 5.0 mmol/L (3.5-5.1) 12/18/24 Cl 104 mmol/L (98-107) 12/18/24 CO2 31 mmol/L (21-32) 12/18/24 BUN 43 mg/dl (6-23) H 12/18/24 Creat 1.48 mg/dl (0.6-1.4) H 12/18/24 Glucose Level 102 mg/dl (70-99(Fasting)) H 12/18/24 PT 10.9 Seconds (9.0-12.0) 12/18/24 PTT 29 Seconds (21-31) 12/18/24 INR 1.0 (0.9-1.1) 12/18/24 HA1c 6.0 % (4.5-5.6) H 12/18/24 Urine Color Yellow 11/13/24 Urine Appearance Clear (Clear) 11/13/24 Urine pH 7.5 (4.5-7.5) 11/13/24 Urine Specific [place] 1.019 (1.000-1.030) 11/13/24 Urine Protein Negative (Negative) 11/13/24 Urine Glucose (UA) Negative (Negative) 11/13/24 Urine Ketones Negative (Negative) 11/13/24 Urine Blood Negative (Negative) 11/13/24 Urine Nitrite Negative (Negative) 11/13/24 Urine Bilirubin Negative (Negative) 11/13/24 Urine Urobilinogen Negative (Negative) 11/13/24 Urine Leukocyte Esterase Trace (Negative) H 11/13/24 Urine WBC (Auto) 0-5 /hpf (0-5) 11/13/24 Urine RBC (Auto) 0-2 /hpf (0-2) 11/13/24 Urine Hyaline Casts (Auto) 0-2 /lpf (0-2) 11/13/24 Urine Epithelial Cells (Auto) 0-2 /hpf (0-2) 11/13/24 Urine Bacteria (Auto) None Seen (None Seen) 11/13/24 Blood Type A Positive 12/18/24 Antibody Screen NEGATIVE 12/18/24 Testing Electrocardiogram Date: 03/13/24 Sinus bradycardia with first degree AV block, rate 45 bpm Other Testing Carotid doppler 08/14/22 < 50% stenosis ICAs bilat
[~2025-01-13 08:50] MED LIST changes: -ASPI81TA28 PO; +BUPIVACAINE 0.5 % 5 MG/1 ML PF 10ML VIAL ONE; -CALC-393 PO; -CLR10 PO; -DLTCD/240 PO; -IBUP-103 PO; -IRBE1TAB48 PO; +LIDOCAINE 2% 2 ML VIAL/AMP(20MG/ML) INFIL ONE; -MECL1TAB42 PO; +MIDAZOLAM HCL 1 MG/ML 2ML VIAL ONE; -PRAV40TA2 PO; +PROPOFOL IV EMULSION 10 MG/ML 20 ML VIAL IV ONE; -TPRSR/100 PO; -TRIA37.5 PO; +fentaNYL citrate PF 100 MCG/2 ML VIAL ONE
--- NOTE | 2025-01-13 09:07 | History & Physical Bridge Note ---
Date of Service January 13, 2025 History & Physical Bridge Note I have examined the patient, reviewed the History & Physical and in the interval since the performance of the History & Physical I have noted the following changes of clinical significance: no changes noted
[2025-01-13] MEDS: dexAMETHasone**PF** 10 MG/ML VIAL IV SCH (09:09)
[2025-01-13] MEDS: METOCLOPRAMIDE HCL 10 MG TABLET PO SCH (09:10)
[2025-01-13] MEDS: LR 60ML/HR IV SCH (09:10)
[2025-01-13] MEDS: ACETAMINOPHEN 500 MG TAB PO SCH ×2 (09:10→22:46)
[2025-01-13] MEDS: FAMOTIDINE 20 MG TAB PO SCH (09:10)
[2025-01-13] MEDS: CeleBREX 200 MG CAP PO SCH (09:10)
[2025-01-13] MEDS: LR 500ML BOLUS, THEN 15ML/HR IV SCH (09:30)
[2025-01-13] MEDS ORDERED: ATROPINE SULFATE 0.1 MG/ML 10ML SYR IV PRN (10:40)
[2025-01-13] MEDS ORDERED: ONDANSETRON INJ 2 MG/ML 2 ML VIAL IV PRN ×2 (10:40→16:30)
[2025-01-13] MEDS ORDERED: PROMETHAZINE HCL 6.25 MG in SODIUM CHLORIDE 0.9% 50 ML IV PRN (10:40)
[2025-01-13] MEDS ORDERED: ePHEDrine sulfate 50 MG/ML AMP IV PRN (10:40)
[2025-01-13] MEDS ORDERED: HYDROmorphone INJ 2 MG/ML SYR/VIAL IV PRN (10:40)
[2025-01-13] MEDS: TRANEXAMIC ACID 1,000 MG **IV Pre-op IV SCH (11:14)
[2025-01-13] MEDS: ceFAZolin 3000MG 3,000 MG/72.5 ML BAG IV SCH (11:36)
[2025-01-13] MEDS ORDERED: ePHEDrine sulfate 50 MG/ML AMP ONE (12:03)
[2025-01-13] MEDS ORDERED: LIDOCAINE 2% 2 ML VIAL/AMP(20MG/ML) INFIL ONE (12:05)
[2025-01-13] MEDS ORDERED: GLYCOPYRROLATE 0.2 MG/ML VIAL ONE (12:18)
[2025-01-13] MEDS ORDERED: PHENYLEPHRINE HCL 10 MG/ML VIAL ONE (12:18)
[2025-01-13] MEDS: BUPIVACAINE/EPINEPHRINE 0.5% MPF 1:200,000 30 ML VIAL ONE (12:33)
[2025-01-13] MEDS ORDERED: PROPOFOL IV EMULSION 10 MG/ML 20 ML VIAL IV ONE (13:04)
[2025-01-13] MEDS ORDERED: ePHEDrine sulfate 50 MG/5 ML SYR ONE (13:31)
[2025-01-13] MEDS ORDERED: KETAMINE HCL 10MG/ML SYR ONE (13:38)
[2025-01-13] MEDS ORDERED: PROPOFOL IV EMULSION 10 MG/ML 100 ML VIAL IV ONE (14:51)
--- NOTE | 2025-01-13 15:07 | Operative Report ---
PG Post Operative Report Pre & Post Diagnosis Operation Date: 01/13/25 10:40 Pre-Op Diagnosis: Left Hip Osteoarthritis Post-Op Diagnosis: Left Hip Osteoarthritis I identified the patient and participated in the time-out.: Yes Procedure Operation Date: 01/13/25 10:40 Actual Procedures p Left Total Hip Arthroplasty with Hardware Removal(Left) - Liam Santiago MD Surgeon Liam Santiago MD Disabilities Caregiver Meet Walton PA-C Estimated Blood Loss 200 Findings Consistent with Post-Op Diagnosis Specimens Left femoral head sent for pathology. Anesthesia Type Spinal MAC Complications none Disposition Accompanied Patient To Recovery: No Indications The patient is a 79-year-old gentleman who sustained a femur fracture back in 1962. He underwent IM nailing at the [facility] in [place]. Over the past year he has developed increased pain discomfort in the left hip such that he had used a cane to get around. Pains, more debilitating. He failed conservative measures. He was adamant about having his hip replaced. In order to do this would remove the IM nail. Description of Procedure Operative implants consists of: 1. Biomet G7 size 54 mm acetabular shell. 2. 6.5 cancellous acetabular screws both of 35 mm length. 3. [place] hole lube worker. 4. Highly cross-linked polyethylene liner with a 54 mm outer diam and 36 mm inner diameter. 5. DePuy Karaya size 13 revision femoral stem. 6. -2/36 mm metal articular ball. I attest to the content of the Intraoperative Record and any orders documented therein. Any exceptions are noted below.
[2025-01-13] MEDS: fentaNYL citrate PF 100 MCG/2 ML VIAL IV PRN (15:15)
--- NOTE | 2025-01-13 15:33 | XRay Report ---
XR hip 1V LT w pelvis CLINICAL HISTORY: IN PACU - Post Surgical COMPARISON: 05/29/2024 FINDINGS: Left hip prosthesis shows no hardware complication. Stable old healed fracture at the left femoral shaft. There is expected soft tissue gas. Skin yamile are present. IMPRESSION: Unremarkable postoperative exam. ACT 112: Negative or not required by law. Electronically signed by: Juan Manuel Calderon M.D. 01/13/2025 3:32 PM
--- NOTE | 2025-01-13 15:39 | Anesthesiology Progress Note ---
Date of Service January 13, 2025 Anesthesia Post Procedure Vital Signs Vital Signs: Temp Pulse Pulse Resp BP Pulse Ox O2 Del Method 01/13/25 15:30 97.5 F L 72 14 119/68 94 Nasal Cannula 01/13/25 15:20 71 14 108/54 L 93 Oxymask 01/13/25 15:10 73 14 134/66 97 Oxymask 01/13/25 15:00 96.8 F L 70 15 105/65 97 Oxymask 01/13/25 09:01 97.9 F 59 L 20 155/62 H 95 Room Air O2 Flow Rate 01/13/25 15:30 2 01/13/25 15:20 2 01/13/25 15:10 8 01/13/25 15:00 8 01/13/25 09:01 Pain Intensity Left Hip: Pain Intensity: 5 Transfer of Care Handoff Completed per policy Notes Mental Status: alert / awake / arousable and participated in evaluation Patient Amnestic to Procedure: Yes Nausea / Vomiting: adequately controlled Pain: adequately controlled Airway Patency, RR, SpO2: stable & adequate BP & HR: stable & adequate Hydration State: stable & adequate Neuraxial Anesthesia: was administered and sensory block is resolving Anesthetic Complications: no major complications apparent and Pt Satisfied with anesthetic care
[2025-01-13] MEDS ORDERED: GLUCAGON FOR INJ 1 MG VIAL SQ PRN (16:30)
[2025-01-13] MEDS ORDERED: GLUCOSE 10 TAB/TUBE PO PRN (16:30)
[2025-01-13] MEDS ORDERED: GLUCOSE 40% GEL 15 GM TUBE PO PRN (16:30)
[2025-01-13] MEDS ORDERED: PHARMACY GLYCEMIC MGMT CONSULT PRN (16:30)
[2025-01-13] MEDS ORDERED: ALUMINUM/MAGNESIUM SUSP 30 ML UDC PO PRN (16:30)
[2025-01-13] MEDS ORDERED: CARBOHYDRATES FOR HYPOGLYCEMIA PO PRN (16:30)
[2025-01-13] MEDS: SODIUM CHLORIDE 0.9% 1,000 ML IV SCH (16:30)
[2025-01-13] MEDS ORDERED: bisacodyL 10 MG SUPP PR PRN (16:30)
[2025-01-13] MEDS ORDERED: METOCLOPRAMIDE HCL INJ 5 MG/ML 2 ML VIAL IV PRN (16:30)
[2025-01-13] MEDS ORDERED: DEXTROSE 50% 50 ML SYRINGE IV PRN (16:30)
[2025-01-13] MEDS ORDERED: NO NSAIDS SCH (16:30)
[2025-01-13] MEDS ORDERED: NALOXONE HCL 0.4 MG/1 ML VIAL/CARP IV PRN (16:30)
[2025-01-13] MEDS ORDERED: MAGNESIUM HYDROXIDE SUSP 30 ML UDC PO PRN (16:30)
--- NOTE | 2025-01-13 17:08 | Operative Report ---
PG Post Operative Report Pre & Post Diagnosis Operation Date: 01/13/25 10:40 Pre-Op Diagnosis: Left Hip Osteoarthritis Post-Op Diagnosis: Left Hip Osteoarthritis I identified the patient and participated in the time-out.: Yes Procedure Operation Date: 01/13/25 10:40 Actual Procedures p Left Total Hip Arthroplasty with Hardware Removal(Left) - Liam Santiago MD Surgeon Liam Santiago MD Instrumentation Fitter Meet Walton PA-C Estimated Blood Loss 200 Findings Consistent with Post-Op Diagnosis Specimens Left femoral head sent for pathology. Anesthesia Type Spinal MAC Complications none Disposition Accompanied Patient To Recovery: No Indications Patient is an 79-year-old gentleman who sustained a femur fracture back in 1962. He underwent IM nailing at the [facility] in [place]. Over the past year he has developed increased pain discomfort in his left hip and leg area. Pain became debilitating. He failed conservative measures. X-rays show progressive hip arthritis. The patient was strongly desiring total hip arthro plasty. In order to do so we had to remove the IM nail. Description of Procedure Operative implants consists of: 1. Biomet G7 size 54 mm acetabular shell. 2. 6.5 cancellous acetabular screws both with 35 mm length. 3. [place] hole integrated circuit ic layout designer. 4. Highly cross-linked polyethylene liner with a 54 mm outer diameter and 36 mm inner diameter. 5. DePuy Karaya revision size 13 standard offset femoral stem. 6. -2/36 mm metal articular ball. The patient was taken to the op room, identified, placed on the operating table in the supine position. All conductors were appropriately padded. IV antibiotics provided by anesthesia team. A spinal anesthetic was implemented holding area. The patient then placed in the right lateral decubitus position. An axillary roll was placed. A stool Birkett position was used for positioning. The left hip and leg were then prepped and draped in usual sterile fashion. A posterolateral approach to the left hip was then performed to a curvilinear incision over the lateral aspect of the femur and then proximally and slightly posteriorly. We used a previous incision as well. Sharp dissection was Through subcutaneous tissue down of the IT band. The IT band gluteal fascia was lysed longitudinally in line with skin incision. The greater enteric bursa was excised. The piriformis and external rotators along with the posterior joint capsule were then released from the posterior aspect of the hip as a single layer. Great care was taken throughout the procedure protect the sciatic nerve at all times. The hip was internally rotated and dislocated. A femoral neck osteotomy cut was made with Final Cut 10 mm above the lesser trochanter. Femoral head was removed and sent for pathology. The femur was then examined. I did try and locate the IM tia and after very carefully had removing some of the tough soft tissues and then using the cookie cutter to open the proximal Canal I found the tia. We then proceeded to a try to remove this. I circumferentially moved all the soft tissue around the proximal aspect the tia. We then attached the slaphammer to this. I was able to remove it part way and then the slaphammer fell off the right and onto the floor. We had taken resterilized this. I then spent quite a bit of time trying to Jose flow around the proximal nail to loosen it up. We used multiple different devices to try and remove it unsuccessfully. We eventually had the extractor device resterilized and reattach this proximal femur. After extensive effort we were able to remove the nail without incident. He did take some significant effort. The femur was retracted anteriorly. Attention drawn the acetabulum. The acetabular labrum was excised. The Pulvinal fat was excised. Sequential reaming the acetabulum was then performed performed again with a size 45 and progressing up to 53. I reamed a little bit with a 54 reamer and then placed a 54 mm acetabular shell in about 40 degrees lateral opening and 20 degrees of anteversion. It was fixed with two 6.5 screws. An anterior osteophyte was removed. Trial liner was placed. Attention under drawn back to the femur. The proximal femur was entered with a cookie cutter. I then reamed with a hand reamers up to a size 12. We then broached with the broaches. I broached this to a size 11. I could not quite fit this step down on the trial implant so I reamed distally with 13. At this point the implant fit down quite easily so I reamed I broached up to a size 13. We trialed the 13 to fit perfectly. We trialed different neck lengths and it was fairly tight even with the -[address] these implants. All trial implants were removed. An apex hole integrated circuit ic layout designer was placed. Highly cross-linked polyethylene liner was placed. A size 13 revision Karaya femoral stem was impacted in position. A -2/36 mm metal articular ball was placed. Hip was located. It was extremely stable. Seemed a little tight anteriorly but that would accept this. With that attention was then drawn toward closing. I irrigated extensively. I injected locally with 60 cc of half percent Marcaine with epinephrine. The posterior capsule and external rotators were then repaired to drawls in the posterior trochanter with #2 Tycron suture. The IT band gluteal fascia then closed with #1 PDS suture in a running fashion. Subcutaneous tissue then closed with 2 Dexon suture in buried erupted fashion the skin was closed skin yamile. Leg was then cleaned and dried and a Prevena VAC dressing was applied. The patient was then transferred to the recovery room in stable condition. Patient tolerated procedure well and there were no complications. Meet Walton, my physician optometry assistant, was present for the entire procedure. His assistance was required for proper patient positioning, prepping and draping, surgical exposure, retraction, perform the technical details of the operation, removal of the hardware, placement of the hardware, closure of the incision site, and placement of postoperative sterile bandage. I attest to the content of the Intraoperative Record and any orders documented therein. Any exceptions are noted below.
[2025-01-13] MEDS: ASCORBIC ACID 500 MG TAB PO SCH (17:09)
[2025-01-13] MEDS: oxyCODONE HCL IR 5 MG TAB (IMMEDIATE RELEASE) PO PRN (17:09)
[2025-01-13] MEDS: INSULIN ASPART PER UNIT CHARGE SC SCH (17:44)
[2025-01-13] MEDS: DOCUSATE SODIUM 100 MG CAP PO SCH (20:26)
[2025-01-13] MEDS: SENNA 8.6 MG TAB PO SCH (20:27)
[2025-01-13] MEDS: ASPIRIN 81 MG ECTAB PO SCH (20:27)
[2025-01-13] MEDS: SIMVASTATIN 40 MG TAB PO SCH (20:27)
[2025-01-13] MEDS: ceFAZolin 2000MG 2,000 MG/15 ML SYR IV SCH (20:28)
[2025-01-13] MEDS: HYDROmorphone INJ 0.5 MG/0.5 ML SYR IV PRN (20:30)
[2025-01-13] MEDS: TRANEXAMIC ACID / 0.7% NACL 1,000 MG/100 ML BAG IV SCH (20:31)
[2025-01-13] MEDS ORDERED: ACETAMINOPHEN 500 MG TAB PO SCH (21:00)
[2025-01-13] MEDS ORDERED: SENNA 8.6 MG TAB PO SCH (21:00)
[2025-01-14 02:48] VITALS: RESP 18
[2025-01-14 06:38] LABS: Basophils # (auto) 0.01 K/uL (0.00-0.20); Basophils % (auto) 0.1 %; Hematocrit (blood only) 30.1 % (42.0-52.0); Hemoglobin 9.6 g/dl (14.0-18.0); Immature Granulocytes # (auto) 0.04 K/uL (0.01-0.20); Immature Granulocytes % (auto) 0.4 %; Lymphocytes # (auto) 1.11 K/uL (1.20-3.40); Lymphocytes % (auto) 10.8 %; Mean Corpuscular Hemoglobin 29.4 pg (25.0-34.0); Mean Corpuscular Hgb Conc 31.9 g/dL (32.0-36.0); Mean Platelet Volume 9.3 fL (9.4-12.4); Monocytes # (auto) 0.94 K/uL (0.11-0.59); Monocytes % (auto) 9.2 %; Neutrophils # (auto) 8.14 K/uL (1.40-6.50); Neutrophils % (auto) 79.5 %; Platelet Count 249 K/uL (130-400); RDW Coefficient of Variation 13.4 % (11.5-14.5); RDW Standard Deviation 45.7 fL (36.4-46.3); Red Blood Count 3.27 M/uL (4.70-6.10); White Blood Count 10.24 K/ul (4.8-10.8)
[2025-01-14 07:06] VITALS: BP 156/72; PULSE 68; TEMP 97.7; O2SAT 90
[2025-01-14 07:07] LABS: BUN Creatinine Ratio 24.8 (10-20); Calcium 8.3 mg/dl (8.6-10.3); Potassium 4.8 mmol/L (3.5-5.1)
--- NOTE | 2025-01-14 07:22 | Pharmacy Report ---
Pharmacy Glycemic Short Note 2 - Date of Service January 14, 2025 - Glycemic Short BSG Results (Last 24 hours): 01/13/25 01/13/25 01/13/25 09:14 15:04 16:24 Glucose POC Glucose 145 H 155 H 150 H 01/13/25 01/14/25 20:26 05:59 Glucose 126 H POC Glucose 136 H OUTPATIENT ANTIDIABETIC REGIMEN: * metformin 500 mg bid ASSESSMENT: * 79 year old s/p surgery, POD 1 - type 2 diabetic on metformin outpatient. Did receive steroids preop. Blood sugars stable over last 24 hours. Fasting BSG 126 mg/dL - will hold basal and continue with just novolog for now. May consider adding basal if blood sugars start trending upward with ongoing steroids. PLAN FOR INPATIENT GLYCEMIC CONTROL: * Hold outpatient oral diabetes medications * Basal insulin * Lantus - hold * Bolus insulin * NovoLog per scale ACHS or Q6hrs while NPO * Goal Range: Low 110 mg/dL - High 140 mg/dL * Correction Factor: 30 mg/dL/unit * Nutritional / Prandial insulin per carb ratio of 1 unit per 10 grams CHO consumed
[2025-01-14] MEDS: NIFEdipine EXTENDED REL 30 MG TABCR PO SCH (07:40)
[2025-01-14] MEDS: CHLORTHALIDONE 25 MG TAB PO SCH (07:40)
[2025-01-14] MEDS: TAMSULOSIN HCL 0.4 MG CAP PO SCH (07:40)
[2025-01-14] MEDS: MULTIVITAMIN TAB PO SCH (07:40)
[2025-01-14] MEDS: CALCIUM CARBONATE 1250MG TAB PO SCH (07:40)
[2025-01-14] MEDS: dexAMETHasone 10 MG in SYRINGE 0 ML IV SCH (07:41)
[2025-01-14] MEDS: LOSARTAN POTASSIUM 50 MG TAB PO SCH (07:41)
[2025-01-14] MEDS ORDERED: NON-FORMULARY MEDICATION (Multivitamin Tablet) PO SCH (09:00)
--- NOTE | 2025-01-14 10:09 | Orthopedic Progress Note ---
Date of Service January 14, 2025 Assessment & Plan (1) Status post left hip replacement: Plan: 79-year-old gentleman postop day 1 from a left femur hardware removal and noncemented total hip arthroplasty. He is doing remarkably well. Pain is controlled. He has been getting around pretty well. Plan: 1. DVT prophylaxis including thigh-high teds, SCDs, aspirin twice a day. 2. PT/OT. Weight-bear as tolerated. Left total hip protocol. 3. Pain control. Doing well with current pain regimen. 4. Wound management. He will keep the Prevena VAC dressing on for 7 days. 5. Disposition. Will wali see how he does in therapy today. The plan is discharge to home with some home health. His family can assist in his care as long as he is get around safely. (2) Status post hardware removal: (3) Diabetes: (4) Hypercholesterolemia: (5) Morbid obesity: (6) Hypertension: Admission and Anticipated Discharge Date Admission Date: January 13, 2025 Subjective 79-year-old gentleman postop day 1 from a left hip hardware removal and uncemented total hip arthroplasty. He is doing remarkably well this morning. Has been up and walk around the halls. Pain is controlled. Denies any chest pain or shortness of breath. He is hoping to go home. Physical Exam Physical Exam: Physical examination was a pleasant middle-aged male. He is sitting up in his bedside chair looks quite comfortable. Examination left hip and leg reveals the thigh to be soft and supple. The Prevena VAC dressing is in place. He can dorsiflex and plantarflex his foot appropriately. He is neurologically intact. Respiratory: normal respiratory effort, lungs clear to auscultation Cardiovascular: RRR, no murmur, no edema Gastrointestinal (Abdomen): normal bowel sounds, soft, nontender, no hepatosplenomegaly Results & Data Vital Signs (Past 12 Hours) Vital Signs Temp Pulse Resp BP BP Pulse Ox O2 Del Method 01/14/25 07:05 36.5 C 68 18 156/72 H 90 Room Air 01/14/25 02:48 36.6 C 72 18 164/73 H 94 Room Air 01/13/25 22:57 36.8 C 69 16 177/80 H 93 Room Air Laboratory Results Hemoglobin is 9.6. Hematocrit is 30.1. Electrolytes are stable. 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
== END 2025-01-14 11:09 | disposition home health service (06) ==
LOC: 3E 08:50 → ASU 08:50

== ENCOUNTER 2025-02-07 10:01 | Observation (INO) ==
--- NOTE | 2025-02-07 10:11 | Emergency Department Note ---
Impression & Plan Hypervolemia, Bilateral edema of lower extremity, Status post left hip replacement, Renal insufficiency, Fall from standing, Abrasion of forehead ED Provider Note NAME: DEBORA SUE AGE: 79 SEX: M : 1945 ARRIVES VIA: Walk-In INFORMANT: Patient ED PROVIDER(S): Anthony Wren MD CHIEF COMPLAINT: Bilateral lower extremity edema PLAN: Disposition: Admit MEDICAL DECISION MAKING: The patient is a pleasant 79-year-old gentleman with a past medical history of morbid obesity, hypertension, hyperlipidemia, BPH, diabetes who presents to the emergency department via walk-in accompanied by his for evaluation of ongoing bilateral lower extremity edema and skin blistering in the setting of having a left KEE performed on 01/14. Per records patient had discontinued his compression stockings and declined to use them. Patient was seen by his PCP office several days ago and was started on oral Lasix and doxycycline out of caution. He was instructed that he may need admission to the hospital for IV diuresis given the extent of his edema however the patient wanted to attempt outpatient management to see if this would help. Patient wonders if his swelling and blistering could be related to an allergic reaction to his oxycodone and acetaminophen. Of note, unfortunately the patient tripped upon entering the emergency department where he reports he did not see a curb when he was walking with his walking stick/cane and fell with his hands outstretched and hit his left forehead on the ground. He is not on anticoagulation. He denies any loss of consciousness. The patient declines CT imaging. On evaluation the patient is no acute distress, afebrile with stable vital signs. He appears hypervolemic with 2+ bilateral lower extremity pitting edema with blistering and weeping of the skin. There is no erythema warmth or tenderness. No crepitus. Patient does have minor abrasion/contusion of the left forehead without bony crepitus. No midline CTL spine tenderness palpation or step-offs. Of note, the patient insist that he does not want CT imaging of his head and feels that "he is fine". Given the patient is mentating normally without complaints of headache and the fact that he is not on anticoagulation we will defer per patient's preference. EKG without overt acute ischemia. CXR negative for acute cardiopulmonary process per my personal preliminary review/interpretation. Additionally, plain film of the pelvis and left hip negative for acute fracture or dislocation. WBC 12.9 K with neutrophilia but no left shift. H/H approximate to prior values. Platelets 458K, nonspecific and likely reactive. Chemistry without metabolic acidosis. Creatinine 1.6 increased from recent but proximate to prior range of values. LFTs unremarkable. High styptic troponin 18.6, within normal limits. ESR and CRP are elevated at 64 and 2.3, respectively and are nonspecific. BNP mildly above normal at 106. Lipase is normal. Procalcitonin is not elevated. TSH within normal limits. Bilateral lower extremity ultrasound was performed and negative for DVT. Given persistence of edema despite outpatient oral Lasix patient and agree with plan for admission for further management. Case was discussed with Dr. Arreguin [facility] hospitalist, who will evaluate the patient for admission. Further management per admitting team. Triage Nursing notes reviewed and agree them. Prior/external medical records reviewed Vital Signs: reviewed Differential diagnosis: DVT, musculoskeletal, infection, joint effusion, trauma, lymphedema, idiopathic, CHF, as well as other pathologies. ER treatment provided: See below. Diagnostics interpreted by me: ECG: Sinus rhythm, 63 bpm, first-degree AV block, no ectopy, no overt ST elevation or depression, QTc 435, QRS 96. Cardiac Monitoring: An order for continuous cardiac monitoring was placed and demonstrated sinus rhythm, 63 bpm, no ectopy. Laboratory studies: See below Imaging studies: See below Consultation(s): Case was discussed with Dr. Arreguin, [facility] hospitalist, who will evaluate the patient for admission. HPI: Per MDM. ROS: See above HPI for pertinent positives & negatives. A total of 10 systems reviewed and were otherwise negative. VITALS:See Below PHYSICAL EXAMINATION: GENERAL: Awake, alert, chronically ill-appearing, in no distress, BMI 50.3. HENT: Normocephalic, minor abrasion/contusion of the left forehead. Oropharynx unremarkable. EYES: Normal conjunctiva. Sclera non-icteric. NECK: Supple. No nuchal rigidity. FROM. No JVD. RESPIRATORY: Clear to auscultation. CARDIAC: Regular rate, normal rhythm. Extremities warm and well perfused. Pulses equal. ABDOMEN: Soft, non-distended. No tenderness to palpation. No rebound or guarding. No masses. MUSCULOSKELETAL: Chest examination reveals no tenderness. The back is symmetrical on inspection without obvious abnormality. There is no CVA tenderness to palpation. No joint edema. LOWER EXTREMITIES: 2+ bilateral lower extremity pitting edema with blistering and serous weeping of the skin. There is no erythema warmth or tenderness. No crepitus. NEURO: Normal sensorium. No sensory or motor deficits noted. SKIN: No rash or jaundice noted. Anthony Wren MD Past Med/Surg History Problem List (Updated 02/07/25 @ 23:14 by Anthony Wren MD) Abrasion of forehead (Acute) Fall from standing (Acute) Renal insufficiency (Acute) Bilateral edema of lower extremity (Acute) Hypervolemia (Acute) Leg swelling Leg wound, right Leg wound, left Ulcer of buttock Status post hardware removal Status post left hip replacement (Acute) Bradycardia Insomnia History of adenomatous polyp of colon Carotid artery plaque Actinic keratosis Benign localized hyperplasia of prostate with urinary obstruction (Acute) Diabetes (Acute) "pre diabetes" per patient Disc degeneration, lumbar (Acute) Hypercholesterolemia (Acute) Male erectile disorder of organic origin (Acute) Morbid obesity (Acute) Hypertension Medical History Osteoarthritis of left hip Osteoarthritis Hypertension controlled, stable stable per pt Hypercholesterolemia Diabetes History of bradycardia BPH (benign prostatic hyperplasia) Carotid artery stenosis < 50% stenosis ICAs Renal insufficiency pt unaware Tubular adenoma of colon 2019 Surgical History History of colonoscopy History of surgery on left wrist Fusion of spine lumbar History of repair of rotator cuff x2 to right Family History Sister Cervix cancer Mother No problems noted. 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 Beliefs That Will Affect Care: None marital status: Current Living Situation: Alone current occupational status: retired current occupation: [employer] Feels Safe at Home: Yes Safety Concerns: Feels Safe At This Time Childhood Exposure to Second-Hand Smoke: No Diet: regular caffeine: Yes during the past year weight has: remained stable Dental Care, Regularly: Yes Physical Activity Frequency: 3-4 Times per Week Physical Activity Frequency Comment: walk Seatbelt Use: always Sunscreen Use: Yes Assistive Devices: Cane and Glasses Allergies Allergies Allergy/AdvReac Type Severity Reaction Status Date / Time alfuzosin Allergy Mild itching Verified 02/04/25 14:53 Home Meds Home Medications Medication Instructions Recorded Confirmed aspirin 81 mg tablet,delayed 0 mg PO QAM 04/27/19 02/07/25 release calcium carbonate 600 mg PO UD 04/27/19 02/07/25 multivitamin 1 tab PO UD 01/07/21 02/07/25 chlorthalidone 50 mg tablet 50 mg PO QAM 12/05/24 02/07/25 nifedipine 30 mg tablet,extended 30 mg PO QAM 12/05/24 02/07/25 release simvastatin 40 mg tablet 40 mg PO HS 12/05/24 02/07/25 celecoxib 100 mg capsule (Celebrex) 100 mg PO BID PRN Pain 02/07/25 02/07/25 labetalol 200 mg tablet 200 mg PO BID 02/07/25 02/07/25 latanoprost 0.005 % eye drops 1 drp ophthalmic (eye) PM 02/07/25 02/07/25 tamsulosin 0.4 mg capsule (Flomax) 0 mg PO DAILY 02/07/25 02/07/25 timolol maleate 0.5 % eye drops 1 drp ophthalmic (eye) QAM 02/07/25 02/07/25 Previous Rx's Medication Instructions Recorded blood-glucose meter (OneTouch #1 ea 05/04/20 Verio Flex Start kit) irbesartan 300 mg tablet 300 mg PO QAM #90 tabs 03/31/24 metformin 500 mg tablet 500 mg PO BID #180 tabs 08/13/24 acetaminophen 500 mg tablet 1,000 mg (2 x 500 mg) PO TID pain 01/11/25 (Tylenol Extra Strength) 30 days #180 tabs aspirin 81 mg tablet,delayed 81 mg PO BID 45 days #90 tabs 01/11/25 release (Alberto Low Dose Aspirin) ondansetron 4 mg disintegrating 4 mg PO Q8 PRN nausea #20 tabs 01/11/25 tablet oxycodone 5 mg tablet 5 mg PO Q6 PRN pain #20 tabs 01/30/25 doxycycline hyclate 100 mg tablet 100 mg PO BID 7 days #14 tabs 02/04/25 furosemide 40 mg tablet 40 mg PO QAM #30 tabs 02/04/25 Results & Data (ED) Vital Signs Vital Signs - 24 hr 02/07/25 10:04 02/07/25 10:21 02/07/25 10:21 Temperature 36.7 C Temperature Source Temporal Artery Scan Pulse Rate 66 Pulse Rate [Apical] Pulse Rate from SpO2 Sensor Pulse Rhythm Regular Respiratory Rate 20 Respiratory Effort / Characteristics Non-Labored Spontaneous Respiratory Depth Normal Respiratory Pattern Regular Blood Pressure 111/48 L 147/88 H 147/88 H Blood Pressure [Right Arm] Blood Pressure Mean 69 113 113 Blood Pressure Mean [Right Arm] Blood Pressure Position Sitting Blood Pressure Position [Right Arm] Pulse Oximetry 96 Oxygen Delivery Method Room Air Oxygen Flow Rate Sepsis Recent Fever Within 48 Hours No Sepsis New/Unexplained Change in Mental Status No Sepsis Action Taken by Nursing No Action Required 02/07/25 10:21 02/07/25 10:21 02/07/25 10:23 Temperature Temperature Source Pulse Rate 66 Pulse Rate [Apical] Pulse Rate from SpO2 Sensor 66 Pulse Rhythm Respiratory Rate 13 Respiratory Effort / Characteristics Respiratory Depth Respiratory Pattern Blood Pressure 147/88 H 147/88 H Blood Pressure [Right Arm] Blood Pressure Mean 113 113 Blood Pressure Mean [Right Arm] Blood Pressure Position Blood Pressure Position [Right Arm] Pulse Oximetry 93 Oxygen Delivery Method Oxygen Flow Rate Sepsis Recent Fever Within 48 Hours Sepsis New/Unexplained Change in Mental Status Sepsis Action Taken by Nursing 02/07/25 10:24 02/07/25 10:27 02/07/25 10:32 Temperature Temperature Source Pulse Rate 67 66 Pulse Rate [Apical] Pulse Rate from SpO2 Sensor 66 Pulse Rhythm Respiratory Rate 15 Respiratory Effort / Characteristics Respiratory Depth Respiratory Pattern Blood Pressure Blood Pressure [Right Arm] Blood Pressure Mean Blood Pressure Mean [Right Arm] Blood Pressure Position Blood Pressure Position [Right Arm] Pulse Oximetry 94 93 Oxygen Delivery Method Room Air Oxygen Flow Rate Sepsis Recent Fever Within 48 Hours Sepsis New/Unexplained Change in Mental Status Sepsis Action Taken by Nursing 02/07/25 10:36 02/07/25 10:47 02/07/25 10:53 Temperature Temperature Source Pulse Rate 63 63 Pulse Rate [Apical] Pulse Rate from SpO2 Sensor 63 64 Pulse Rhythm Respiratory Rate 28 H 24 Respiratory Effort / Characteristics Respiratory Depth Respiratory Pattern Blood Pressure Blood Pressure [Right Arm] Blood Pressure Mean Blood Pressure Mean [Right Arm] Blood Pressure Position Blood Pressure Position [Right Arm] Pulse Oximetry 93 91 91 Oxygen Delivery Method Room Air Oxygen Flow Rate Sepsis Recent Fever Within 48 Hours Sepsis New/Unexplained Change in Mental Status Sepsis Action Taken by Nursing 02/07/25 11:11 02/07/25 11:13 02/07/25 11:39 Temperature Temperature Source Pulse Rate 62 71 Pulse Rate [Apical] Pulse Rate from SpO2 Sensor 61 68 Pulse Rhythm Respiratory Rate 22 16 Respiratory Effort / Characteristics Respiratory Depth Respiratory Pattern Blood Pressure 130/59 L Blood Pressure [Right Arm] Blood Pressure Mean 76 Blood Pressure Mean [Right Arm] Blood Pressure Position Blood Pressure Position [Right Arm] Pulse Oximetry 96 92 Oxygen Delivery Method Oxygen Flow Rate Sepsis Recent Fever Within 48 Hours Sepsis New/Unexplained Change in Mental Status Sepsis Action Taken by Nursing 02/07/25 11:45 02/07/25 11:47 02/07/25 11:47 Temperature Temperature Source Pulse Rate Pulse Rate [Apical] Pulse Rate from SpO2 Sensor 76 Pulse Rhythm Respiratory Rate Respiratory Effort / Characteristics Respiratory Depth Respiratory Pattern Blood Pressure 161/60 H Blood Pressure [Right Arm] Blood Pressure Mean 110 Blood Pressure Mean [Right Arm] Blood Pressure Position Blood Pressure Position [Right Arm] Pulse Oximetry 90 87 L Oxygen Delivery Method Room Air Oxygen Flow Rate Sepsis Recent Fever Within 48 Hours Sepsis New/Unexplained Change in Mental Status Sepsis Action Taken by Nursing 02/07/25 11:48 02/07/25 12:09 02/07/25 12:27 Temperature Temperature Source Pulse Rate 65 Pulse Rate [Apical] Pulse Rate from SpO2 Sensor 61 65 Pulse Rhythm Respiratory Rate 25 H 19 Respiratory Effort / Characteristics Respiratory Depth Respiratory Pattern Blood Pressure Blood Pressure [Right Arm] Blood Pressure Mean Blood Pressure Mean [Right Arm] Blood Pressure Position Blood Pressure Position [Right Arm] Pulse Oximetry 95 99 99 Oxygen Delivery Method Nasal Cannula Oxygen Flow Rate 2 Sepsis Recent Fever Within 48 Hours Sepsis New/Unexplained Change in Mental Status Sepsis Action Taken by Nursing 02/07/25 13:00 02/07/25 13:29 02/07/25 13:29 Temperature Temperature Source Pulse Rate Pulse Rate [Apical] 62 Pulse Rate from SpO2 Sensor Pulse Rhythm Respiratory Rate 18 Respiratory Effort / Characteristics Non-Labored Spontaneous Respiratory Depth Normal Respiratory Pattern Agonal Blood Pressure 133/69 133/69 Blood Pressure [Right Arm] 133/69 Blood Pressure Mean 81 81 Blood Pressure Mean [Right Arm] 90 Blood Pressure Position Blood Pressure Position [Right Arm] Lying Pulse Oximetry 99 Oxygen Delivery Method Nasal Cannula Oxygen Flow Rate 2 Sepsis Recent Fever Within 48 Hours Sepsis New/Unexplained Change in Mental Status Sepsis Action Taken by Nursing 02/07/25 13:29 02/07/25 13:30 02/07/25 13:51 Temperature Temperature Source Pulse Rate 64 Pulse Rate [Apical] Pulse Rate from SpO2 Sensor 64 Pulse Rhythm Respiratory Rate 19 20 Respiratory Effort / Characteristics Respiratory Depth Respiratory Pattern Blood Pressure 133/69 Blood Pressure [Right Arm] Blood Pressure Mean 81 Blood Pressure Mean [Right Arm] Blood Pressure Position Blood Pressure Position [Right Arm] Pulse Oximetry 98 Oxygen Delivery Method Oxygen Flow Rate Sepsis Recent Fever Within 48 Hours Sepsis New/Unexplained Change in Mental Status Sepsis Action Taken by Nursing 02/07/25 14:00 02/07/25 14:15 Temperature Temperature Source Pulse Rate 62 Pulse Rate [Apical] Pulse Rate from SpO2 Sensor Pulse Rhythm Respiratory Rate 27 H Respiratory Effort / Characteristics Respiratory Depth Respiratory Pattern Blood Pressure 136/57 L Blood Pressure [Right Arm] Blood Pressure Mean 88 Blood Pressure Mean [Right Arm] Blood Pressure Position Blood Pressure Position [Right Arm] Pulse Oximetry Oxygen Delivery Method Oxygen Flow Rate Sepsis Recent Fever Within 48 Hours Sepsis New/Unexplained Change in Mental Status Sepsis Action Taken by Nursing Laboratory Data Attestation: I reviewed the patient's lab results. 02/07/25 10:23 02/07/25 10:23 Lab Results 02/07/25 02/07/25 Range/Units 10:23 10:54 WBC 12.96 H (4.8-10.8) K/ul RBC 3.13 L (4.70-6.10) M/uL Hgb 8.9 L (14.0-18.0) g/dl POC Hgb 8.8 L (14.0-18.0) g/dl Hct 28.5 L (42.0-52.0) % POC Hct 26 L (42-52) % MCV 91.1 (80.0-100.0) fL MCH 28.4 (25.0-34.0) pg MCHC 31.2 L (32.0-36.0) g/dL RDW Std Deviation 46.4 H (36.4-46.3) fL RDW Coeff of Cj 14.1 (11.5-14.5) % Plt Count 458 H (130-400) K/uL MPV 8.4 L (9.4-12.4) fL Immature Gran % (Auto) 1.3 % Neut % (Auto) 72.4 % Lymph % (Auto) 14.5 % [place]born % (Auto) 9.3 % Eos % (Auto) 2.2 % Baso % (Auto) 0.3 % Neut # (Auto) 9.38 H (1.40-6.50) K/uL Lymph # (Auto) 1.88 (1.20-3.40) K/uL [place]born # (Auto) 1.20 H (0.11-0.59) K/uL Eos # (Auto) 0.29 (0.00-0.50) K/uL Baso # (Auto) 0.04 (0.00-0.20) K/uL Immature Gran # (Auto) 0.17 (0.01-0.20) K/uL ESR 64 H (0-20) mm/hr POC Sodium 140 (135-144) mmol/L Sodium 140 (136-145) mmol/L POC Potassium 3.4 (3.3-5.0) mmol/L Potassium 3.7 (3.5-5.1) mmol/L POC Chloride 99 L (101-112) mmol/L Chloride 100 (98-107) mmol/L Carbon Dioxide 29 (21-32) mmol/L POC Total CO2 25 (24-31) mmol/L Anion Gap 11 (3-11) POC Anion Gap 21.0 (16-25) mmol/L POC BUN 32 H (7-18) mg/dl BUN 39 H (6-23) mg/dl Creatinine 1.67 H (0.6-1.4) mg/dl POC Creatinine 1.7 H (0.6-1.3) mg/dl Est Cr Clr Drug Dosing Not Reportable eGFR 40.86 BUN/Creatinine Ratio 23.4 H (10-20) Glucose 124 H (70-99(Fasting)) mg/dl POC Glucose (other) 120 H (70-99) mg/dl Calcium 8.9 (8.6-10.3) mg/dl POC Ioniz Calcium Juan 1.11 L (1.12-1.32) mmol/l Total Bilirubin 0.4 (0.2-1.0) mg/dl AST 13 (13-39) U/L ALT 13 (7-52) U/L Alkaline Phosphatase 80 (34-104) U/L Troponin I High Sens 18.6 (0-20) pg/ml C-Reactive Protein 2.35 H (0-0.5) mg/dl B-Natriuretic Peptide 106 H (0-100) pg/ml Total Protein 6.5 (6.0-8.3) gm/dl Albumin 3.4 (3.4-5.0) gm/dl Globulin 3.1 (2.5-4.0) gm/dl Albumin/Globulin Ratio 1.1 (0.9-2) Lipase 17 (11-82) U/L Procalcitonin 0.02 (0-0.5) ng/ml TSH 2.671 (0.300-4.500) uIu/ml Administered Medications Doxycycline Hyclate (Doxycycline Hyclate 100 Mg Cap) 100 mg PO BID ZEV Stop: 02/11/25 20:59 Last Admin: 02/07/25 21:00 Dose: 100 mg Documented By: ANGELA Heparin Sodium (Porcine) (Heparin Sod 5,000 Unit/0.5 Ml Vial) 5,000 units SQ Q8 ZEV Stop: 03/09/25 14:59 Last Admin: 02/07/25 21:01 Dose: 5,000 units Documented By: Admin: 02/07/25 15:46 Dose: 5,000 units Documented By: MERCY Insulin Aspart (Insulin Aspart Per Unit Charge) 0 units SC ACHS ZEV Stop: 03/09/25 16:29 Last Admin: 02/07/25 21:01 Dose: Not Given Documented By: Admin: 02/07/25 17:17 Dose: Not Given Documented By: MERCY Melatonin (Melatonin 3 Mg Tab) 3 mg PO HS PRN PRN Reason: Sleep Stop: 03/09/25 21:11 Last Admin: 02/07/25 21:38 Dose: 3 mg Documented By: KEATONT Simvastatin (Simvastatin 40 Mg Tab) 40 mg PO HS ZEV Stop: 03/09/25 20:59 Last Admin: 02/07/25 21:00 Dose: 40 mg Documented By: HNT Discontinued Medications Furosemide (Furosemide 40 Mg/4 Ml Vial) 40 mg IV ONE ONE Stop: 02/07/25 12:04 Last Admin: 02/07/25 12:12 Dose: 40 mg Documented By: ML Imaging Data Radiologist's Impression: Chest X-Ray 02/07/25 10:36 Clinical History: Pain after fall Technique: 2 frontal views of the chest were obtained Findings: There are no confluent pulmonary infiltrates. The heart size is within normal limits. No pleural effusion or pneumothorax is seen. There is no definite pulmonary nodule. No fracture is noted. No foreign body is seen Impression: No active disease Electronically signed by Julian Flores 02-07-2025 11:40 AM Hip/Pelvis X-Ray 02/07/25 10:37 Clinical History: Pain after fall 3 views of the pelvis and left hip are submitted for review. Findings: No definite acute fracture is seen. There is some sclerosis and cortical thickening of the proximal left femoral shaft that could be due to old injury. There is a left hip total arthroplasty in expected position. There is mild right hip osteoarthritis. There is a partially visualized lumbar fusion. No other osseous abnormality is identified. There are no radiopaque foreign bodies. Impression: 1. No definite acute fracture after fall 2. Suspected old fracture of the proximal left femoral shaft 3. Left hip replacement 4. Mild right hip osteoarthritis Electronically signed by Julian Flores 02-07-2025 11:40 AM Venous Doppler Study 02/07/25 10:39 Clinical History: Swelling Technique: Venous ultrasound evaluation was performed utilizing grayscale, color Doppler and wave form evaluation. Images were also obtained with and without compression Findings: The bilateral common femoral, superficial femoral, popliteal, and visualized calf veins demonstrate normal anechoic lumens with full compressibility. Normal flow is seen on color Doppler images. Expected waveforms were produced with augmentation maneuvers Impression: No evidence of deep venous thrombosis Electronically signed by Julian Flores 02-07-2025 13:26 PM Renal Ultrasound 02/07/25 14:13 Exam(s): US RENAL EXAM: US Retroperitoneal Limited, Renal CLINICAL HISTORY: Acute kidney injury. Known horseshoe kidney. TECHNIQUE: Real-time limited ultrasound of the retroperitoneum with image documentation. COMPARISON: Renal ultrasound 06/28/2015 FINDINGS: Limitations: The examination is reportedly limited by patient's ability to position for the examination. Right kidney: The previously noted horseshoe configuration of the kidneys is again suggested. No nephrolithiasis or hydronephrosis involving the right kidney. Left kidney: No hydronephrosis or nephrolithiasis involving the left kidney. Bladder: The bladder is only mildly distended. No bladder stones. No ureteral jets identified. IMPRESSION: Limited examination demonstrates no evidence for hydronephrosis. Suspected horseshoe configuration again noted. No appreciable alteration from the prior examination. Electronically signed by: Jayme Lim MD 02/07/25 21:17 PM Discharge Plan Visit Data Chief Complaint: Leg Injury/Pain Stated Complaint: LEGS SWELLED,BLISTERS,ALLERGIC REACTION TO MEDS ED Provider: Anthony Wren Discharge Problem: Hypervolemia, Bilateral edema of lower extremity, Status post left hip replacement, Renal insufficiency, Fall from standing, Abrasion of forehead Patient Disposition: Admitted As Inpatient Condition: Fair Discharge Instructions Interventions: ED Discharge Assessment Last Done: 02/07/25 14:17 Discharge Problem: Hypervolemia Qualifiers: Hypervolemia type: unspecified Qualified Code(s): E87.70 - Fluid overload, unspecified Fall from standing Qualifiers: Encounter type: initial encounter Qualified Code(s): W19.XXXA - Unspecified fall, initial encounter Abrasion of forehead Qualifiers: Encounter type: initial encounter Qualified Code(s): S00.81XA - Abrasion of other part of head, initial encounter
[2025-02-07 10:46] LABS: Hematocrit (blood only) 28.5 % (42.0-52.0); Hemoglobin 8.9 g/dl (14.0-18.0); Mean Corpuscular Hemoglobin 28.4 pg (25.0-34.0); Mean Corpuscular Volume 91.1 fL (80.0-100.0); Platelet Count 458 K/uL (130-400); RDW Standard Deviation 46.4 fL (36.4-46.3); Red Blood Count 3.13 M/uL (4.70-6.10); White Blood Count 12.96 K/ul (4.8-10.8)
[2025-02-07 10:47] LABS: Immature Granulocytes # (auto) 0.17 K/uL (0.01-0.20); Immature Granulocytes % (auto) 1.3 %
[2025-02-07 11:07] LABS: Alanine Aminotransferase 13 U/L (7-52); Albumin Globulin Ratio 1.1 (0.9-2); Alkaline Phosphatase 80 U/L (34-104); Anion Gap 11 (3-11); Bilirubin,Total 0.4 mg/dl (0.2-1.0); Blood Urea Nitrogen 39 mg/dl (6-23); Calcium 8.9 mg/dl (8.6-10.3); Carbon Dioxide 29 mmol/L (21-32); Chloride 100 mmol/L (98-107); Globulin 3.1 gm/dl (2.5-4.0); Glucose 124 mg/dl (70-99(Fasting)); Lipase 17 U/L (11-82); Potassium 3.7 mmol/L (3.5-5.1); Sodium 140 mmol/L (136-145); Total Protein 6.5 gm/dl (6.0-8.3)
[2025-02-07 11:22] LABS: Thyroid Stimulating Hormone 2.671 uIu/ml (0.300-4.500)
--- NOTE | 2025-02-07 11:40 | XRay Report ---
Clinical History: Pain after fall 3 views of the pelvis and left hip are submitted for review. Findings: No definite acute fracture is seen. There is some sclerosis and cortical thickening of the proximal left femoral shaft that could be due to old injury. There is a left hip total arthroplasty in expected position. There is mild right hip osteoarthritis. There is a partially visualized lumbar fusion. No other osseous abnormality is identified. There are no radiopaque foreign bodies. Impression: 1. No definite acute fracture after fall 2. Suspected old fracture of the proximal left femoral shaft 3. Left hip replacement 4. Mild right hip osteoarthritis Electronically signed by Julian Flores 02-07-2025 11:40 AM
--- NOTE | 2025-02-07 11:40 | XRay Report ---
Clinical History: Pain after fall Technique: 2 frontal views of the chest were obtained Findings: There are no confluent pulmonary infiltrates. The heart size is within normal limits. No pleural effusion or pneumothorax is seen. There is no definite pulmonary nodule. No fracture is noted. No foreign body is seen Impression: No active disease Electronically signed by Julian Flores 02-07-2025 11:40 AM
[2025-02-07] MEDS: FUROSEMIDE 40 MG/4 ML VIAL IV ONE (12:12)
--- NOTE | 2025-02-07 13:27 | Ultrasound Report ---
Clinical History: Swelling Technique: Venous ultrasound evaluation was performed utilizing grayscale, color Doppler and wave form evaluation. Images were also obtained with and without compression Findings: The bilateral common femoral, superficial femoral, popliteal, and visualized calf veins demonstrate normal anechoic lumens with full compressibility. Normal flow is seen on color Doppler images. Expected waveforms were produced with augmentation maneuvers Impression: No evidence of deep venous thrombosis Electronically signed by Julian Flores 02-07-2025 13:26 PM
--- NOTE | 2025-02-07 14:15 | History & Physical Report ---
Date of Service February 07, 2025 Assessment & Plan (1) Leg swelling: (2) Diabetes: (3) Hypercholesterolemia: (4) Morbid obesity: (5) Hypertension: Plan This is an 79-year-old morbidly obese patient with hypertension, hyperlipidemia, diabetes mellitus, who presented with lower extremity edema since he got discharged after having a left total hip arthroplasty 1 month ago. He was started on Lasix 4 days ago orally with no significant improvement. #Lower extremity edema Most likely volume overload The patient may have gotten IV fluids perioperatively. He was given 40 mg of IV Lasix in the emergency room with good diuretic response already Will hold off on further dosing tonight Check BMP in a.m. Consider diuresing him further tomorrow Check echocardiogram Normal chest x-ray and no orthopnea/PND is assuring Low-salt diet #Acute kidney injury His creatinine went up from 1.2-1.6 Monitor renal function closely while diuresing Check retroperitoneal ultrasound Ordered BMP daily Avoid nephrotoxic medications Hold chlorthalidone Further diuretics will be ordered after rechecking renal function #Benign essential hypertension Blood pressure stable Hold chlorthalidone and nifedipine to allow room for IV diuretics #Diabetes mellitus type 2 Hold metformin Continue sliding scale insulin VTE prophylaxis: Heparin 3 times daily CODE STATUS: DNR/DNI History of Present Illness Chief Complaint: Lower extremity edema and blistering for about a month, progressively worsening Primary Care Provider: Vince Arias MD This is an 79-year-old morbidly obese patient with hypertension, hyperlipidemia, diabetes mellitus type 2 who presented with the above chief complaint. The patient had a left total hip arthroplasty done on 01/14. He was discharged to home. Over time, he noticed that he started developing lower extremity edema that was slowly getting worse. 4 days ago, he was seen by his PCP who started him on oral Lasix and doxycycline with no significant improvement. He thus decided to come to the emergency room. He denies fever, chills, shortness of breath, orthopnea, PND. He does have some dyspnea on exertion but that is his baseline and he attributes that to his body habitus. In the emergency room, he had screening blood tests done that showed a mildly elevated white count of 12,000, and elevated creatinine of 1.67 up from 1.25 a month ago. His BNP was slightly elevated at 106. He had a chest x-ray done that was negative. He had venous duplex ultrasound done of both legs that were negative for DVT. He is being admitted for management of lower extremity edema and fluid overload. In the ER, he got 40 mg of IV Lasix x 1 and is already having good response to it. On his way to the ER, he tripped over the curb side and fell. He suffered a small head laceration. He is not on any blood thinners. He did not want to do a CT head. Allergies Allergy/AdvReac Type Severity Reaction Status Date / Time alfuzosin Allergy Mild itching Verified 02/04/25 14:53 Home Medications Medication Instructions Recorded Confirmed Type aspirin 81 mg tablet,delayed 0 mg PO QAM 04/27/19 02/07/25 History release calcium carbonate 600 mg PO UD 04/27/19 02/07/25 History blood-glucose meter (OneTouch #1 ea 05/04/20 02/04/25 Rx Verio Flex Start kit) multivitamin 1 tab PO UD 01/07/21 02/07/25 History irbesartan 300 mg tablet 300 mg PO QAM #90 tabs 03/31/24 02/07/25 Rx metformin 500 mg tablet 500 mg PO BID #180 tabs 08/13/24 02/07/25 Rx chlorthalidone 50 mg tablet 50 mg PO QAM 12/05/24 02/07/25 History nifedipine 30 mg tablet,extended 30 mg PO QAM 12/05/24 02/07/25 History release simvastatin 40 mg tablet 40 mg PO HS 12/05/24 02/07/25 History acetaminophen 500 mg tablet 1,000 mg (2 x 500 mg) PO TID pain 01/11/25 02/07/25 Rx (Tylenol Extra Strength) 30 days #180 tabs aspirin 81 mg tablet,delayed 81 mg PO BID 45 days #90 tabs 01/11/25 02/07/25 Rx release (Alberto Low Dose Aspirin) ondansetron 4 mg disintegrating 4 mg PO Q8 PRN nausea #20 tabs 01/11/25 02/07/25 Rx tablet oxycodone 5 mg tablet 5 mg PO Q6 PRN pain #20 tabs 01/30/25 02/07/25 Rx doxycycline hyclate 100 mg tablet 100 mg PO BID 7 days #14 tabs 02/04/25 02/07/25 Rx furosemide 40 mg tablet 40 mg PO QAM #30 tabs 02/04/25 02/07/25 Rx celecoxib 100 mg capsule (Celebrex) 100 mg PO BID PRN Pain 02/07/25 02/07/25 History labetalol 200 mg tablet 200 mg PO BID 02/07/25 02/07/25 History latanoprost 0.005 % eye drops 1 drp ophthalmic (eye) PM 02/07/25 02/07/25 History tamsulosin 0.4 mg capsule (Flomax) 0 mg PO DAILY 02/07/25 02/07/25 History timolol maleate 0.5 % eye drops 1 drp ophthalmic (eye) QAM 02/07/25 02/07/25 History Past Med/Surg History Problem List Leg swelling Leg wound, right Leg wound, left Ulcer of buttock Status post hardware removal Status post left hip replacement Bradycardia Insomnia History of adenomatous polyp of colon Carotid artery plaque Actinic keratosis Benign localized hyperplasia of prostate with urinary obstruction (Acute) Diabetes (Acute) "pre diabetes" per patient Disc degeneration, lumbar (Acute) Hypercholesterolemia (Acute) Male erectile disorder of organic origin (Acute) Morbid obesity (Acute) Hypertension Medical History Osteoarthritis of left hip Osteoarthritis Hypertension controlled, stable stable per pt Hypercholesterolemia Diabetes History of bradycardia BPH (benign prostatic hyperplasia) Carotid artery stenosis < 50% stenosis ICAs Renal insufficiency pt unaware Tubular adenoma of colon 2020 Surgical History History of colonoscopy History of surgery on left wrist Fusion of spine lumbar History of repair of rotator cuff x2 to right Family History Sister Cervix cancer Mother No problems noted. Father Prostate cancer Brother Coronary heart disease Sister Cancer Other No family history of adverse response to anesthesia Denies family history of Ovarian cancer Myocardial infarction Breast cancer Colorectal cancer Social History Smoking Status: Never smoker Second Hand Exposure: No; Do You Dip or Chew Tobacco: No; Hx Alcohol Use: Yes Alcohol type: beer Alcohol Intake Frequency Comment: Social alcohol intake Hx Substance Use: No Preferred Language: [place] Communication Ability: Effective Visual Impairment: No Limitations Hearing Ability: Normal Ticket Dispenser Changer Required: No Beliefs That Will Affect Care: None marital status: Current Living Situation: Spouse current occupational status: retired current occupation: [employer] Feels Safe at Home: Yes Childhood Exposure to Second-Hand Smoke: No Diet: regular caffeine: Yes during the past year weight has: remained stable Dental Care, Regularly: Yes Physical Activity Frequency: 3-4 Times per Week Physical Activity Frequency Comment: walk Seatbelt Use: always Sunscreen Use: Yes Assistive Devices: Cane and Walker Review of Systems Review of Systems: All systems reviewed & are unremarkable except as noted in Subjective Physical Exam Physical Exam: General: Awake, conversant Heart: S1, S2/regular rate and rhythm, no murmur rubs or gallops Lungs: Clear to auscultation bilaterally. Normal effort Abdomen: Soft/nontender/nondistended. No hepatosplenomegaly Extremities: No clubbing/cyanosis. No edema Behavior: Appropriate, cooperative Results & Data Results & Data Vital Signs (Past 12 Hours) Vital Signs Temp Pulse Pulse Resp BP BP Pulse Ox 02/07/25 13:00 62 18 133/69 99 02/07/25 11:48 95 02/07/25 11:47 161/60 H 02/07/25 11:47 87 L 02/07/25 11:45 90 02/07/25 11:39 71 16 92 02/07/25 11:13 130/59 L 02/07/25 11:11 62 22 96 02/07/25 10:53 63 24 91 02/07/25 10:47 63 28 H 91 02/07/25 10:36 93 02/07/25 10:32 66 15 93 02/07/25 10:27 94 02/07/25 10:24 67 02/07/25 10:23 66 13 93 02/07/25 10:21 147/88 H 02/07/25 10:21 147/88 H 02/07/25 10:21 147/88 H 02/07/25 10:21 147/88 H 02/07/25 10:04 36.7 C 66 20 111/48 L 96 O2 Del Method O2 Flow Rate 02/07/25 13:00 Nasal Cannula 2 02/07/25 11:48 Nasal Cannula 2 02/07/25 11:47 02/07/25 11:47 Room Air 02/07/25 11:45 02/07/25 11:39 02/07/25 11:13 02/07/25 11:11 02/07/25 10:53 02/07/25 10:47 02/07/25 10:36 Room Air 02/07/25 10:32 02/07/25 10:27 Room Air 02/07/25 10:24 02/07/25 10:23 02/07/25 10:21 02/07/25 10:21 02/07/25 10:21 02/07/25 10:21 02/07/25 10:04 Room Air Laboratory Results Abnormal lab results 02/07/25 02/07/25 Range/Units 10:23 10:54 WBC 12.96 H (4.8-10.8) K/ul RBC 3.13 L (4.70-6.10) M/uL Hgb 8.9 L (14.0-18.0) g/dl POC Hgb 8.8 L (14.0-18.0) g/dl Hct 28.5 L (42.0-52.0) % POC Hct 26 L (42-52) % MCHC 31.2 L (32.0-36.0) g/dL RDW Std Deviation 46.4 H (36.4-46.3) fL Plt Count 458 H (130-400) K/uL MPV 8.4 L (9.4-12.4) fL Neut # (Auto) 9.38 H (1.40-6.50) K/uL Dauphin # (Auto) 1.20 H (0.11-0.59) K/uL ESR 64 H (0-20) mm/hr POC Chloride 99 L (101-112) mmol/L POC BUN 32 H (7-18) mg/dl BUN 39 H (6-23) mg/dl Creatinine 1.67 H (0.6-1.4) mg/dl POC Creatinine 1.7 H (0.6-1.3) mg/dl BUN/Creatinine Ratio 23.4 H (10-20) Glucose 124 H (70-99(Fasting)) mg/dl POC Glucose (other) 120 H (70-99) mg/dl POC Ioniz Calcium Juan 1.11 L (1.12-1.32) mmol/l C-Reactive Protein 2.35 H (0-0.5) mg/dl B-Natriuretic Peptide 106 H (0-100) pg/ml Diagnostic Findings Chest X-Ray 02/07/25 10:36 Clinical History: Pain after fall Technique: 2 frontal views of the chest were obtained Findings: There are no confluent pulmonary infiltrates. The heart size is within normal limits. No pleural effusion or pneumothorax is seen. There is no definite pulmonary nodule. No fracture is noted. No foreign body is seen Impression: No active disease Electronically signed by Julian Flores 02-07-2025 11:40 AM Hip/Pelvis X-Ray 02/07/25 10:37 Clinical History: Pain after fall 3 views of the pelvis and left hip are submitted for review. Findings: No definite acute fracture is seen. There is some sclerosis and cortical thickening of the proximal left femoral shaft that could be due to old injury. There is a left hip total arthroplasty in expected position. There is mild right hip osteoarthritis. There is a partially visualized lumbar fusion. No other osseous abnormality is identified. There are no radiopaque foreign bodies. Impression: 1. No definite acute fracture after fall 2. Suspected old fracture of the proximal left femoral shaft 3. Left hip replacement 4. Mild right hip osteoarthritis Electronically signed by Julian Flores 02-07-2025 11:40 AM Venous Doppler Study 02/07/25 10:39 Clinical History: Swelling Technique: Venous ultrasound evaluation was performed utilizing grayscale, color Doppler and wave form evaluation. Images were also obtained with and without compression Findings: The bilateral common femoral, superficial femoral, popliteal, and visualized calf veins demonstrate normal anechoic lumens with full compressibility. Normal flow is seen on color Doppler images. Expected waveforms were produced with augmentation maneuvers Impression: No evidence of deep venous thrombosis Electronically signed by Julian Flores 02-07-2025 13:26 PM Code Status & VTE Plan Code Status DNR/DNI VTE Prophylaxis Plan VTE Prophylaxis will be ordered: Yes PG Care Time/CCT Total # of Minutes Spent Total Time Spent with Patient: Total time spent is greater than 50% in coordination of care (as documented) at patient's floor/unit and/or counseling patient: Coding Level of Care Code 13791 INT INP/OBS CARE Diagnoses Leg swelling M79.89 Type 2 diabetes mellitus without complication, without long-term current use of insulin E11.9 Diabetes mellitus type: type 2 Diabetes mellitus ad terminal makeup operator insulin use: without ad terminal makeup operator use Diabetes mellitus complication status: without complication Hypercholesterolemia E78.00 Morbid obesity E66.01 Primary hypertension I10 Hypertension type: primary hypertension (2) Diabetes Diabetes mellitus type: type 2 Diabetes mellitus ad terminal makeup operator insulin use: without ad terminal makeup operator use Diabetes mellitus complication status: without complication Qualified Code(s): E11.9 - Type 2 diabetes mellitus without complications (5) Hypertension Hypertension type: primary hypertension Qualified Code(s): I10 - Essential (primary) hypertension
--- NOTE | 2025-02-07 14:48 | XCELERA ---
[id number]
[2025-02-07] MEDS ORDERED: GLUCAGON FOR INJ 1 MG VIAL SQ PRN (14:50)
[2025-02-07] MEDS ORDERED: GLUCOSE 40% GEL 15 GM TUBE PO PRN (14:50)
[2025-02-07] MEDS ORDERED: GLUCOSE 10 TAB/TUBE PO PRN (14:50)
[2025-02-07] MEDS ORDERED: DEXTROSE 50% 50 ML SYRINGE IV PRN (14:50)
[2025-02-07] MEDS ORDERED: CARBOHYDRATES FOR HYPOGLYCEMIA PO PRN (14:50)
[2025-02-07] MEDS: HEPARIN SOD 5,000 UNIT/0.5 ML VIAL SQ SCH (15:46)
[2025-02-07] MEDS: INSULIN ASPART PER UNIT CHARGE SC SCH (17:17)
[2025-02-07] MEDS: DOXYCYCLINE HYCLATE 100 MG CAP PO SCH (21:00)
[2025-02-07] MEDS: SIMVASTATIN 40 MG TAB PO SCH (21:00)
--- NOTE | 2025-02-07 21:18 | Ultrasound Report ---
Exam(s): US RENAL EXAM: US Retroperitoneal Limited, Renal CLINICAL HISTORY: Acute kidney injury. Known horseshoe kidney. TECHNIQUE: Real-time limited ultrasound of the retroperitoneum with image documentation. COMPARISON: Renal ultrasound 06/28/2015 FINDINGS: Limitations: The examination is reportedly limited by patient's ability to position for the examination. Right kidney: The previously noted horseshoe configuration of the kidneys is again suggested. No nephrolithiasis or hydronephrosis involving the right kidney. Left kidney: No hydronephrosis or nephrolithiasis involving the left kidney. Bladder: The bladder is only mildly distended. No bladder stones. No ureteral jets identified. IMPRESSION: Limited examination demonstrates no evidence for hydronephrosis. Suspected horseshoe configuration again noted. No appreciable alteration from the prior examination. Electronically signed by: Jayme Lim MD 02/07/25 21:17 PM
[2025-02-07] MEDS: MELATONIN 3 MG TAB PO PRN (21:38)
[2025-02-08 06:31] LABS: Hematocrit (blood only) 29.4 % (42.0-52.0); Hemoglobin 9.1 g/dl (14.0-18.0); Mean Corpuscular Hemoglobin 28.7 pg (25.0-34.0); Mean Corpuscular Volume 92.7 fL (80.0-100.0); Platelet Count 440 K/uL (130-400); RDW Standard Deviation 47.0 fL (36.4-46.3); Red Blood Count 3.17 M/uL (4.70-6.10); White Blood Count 10.50 K/ul (4.8-10.8)
[2025-02-08 07:20] LABS: Anion Gap 10.0 (3-11); Blood Urea Nitrogen 32.0 mg/dl (6-23); Calcium 8.9 mg/dl (8.6-10.3); Carbon Dioxide 33.0 mmol/L (21-32); Chloride 98.0 mmol/L (98-107); Creatinine Clr Calc Pharmacy 52.4 ml/min; Glucose 114.0 mg/dl (70-99(Fasting)); Potassium 3.6 mmol/L (3.5-5.1); Sodium 141.0 mmol/L (136-145)
[2025-02-08] MEDS: ASPIRIN 81 MG ECTAB PO SCH (08:14)
[2025-02-08] MEDS: FUROSEMIDE 40 MG/4 ML VIAL IV ONE (08:15)
--- NOTE | 2025-02-08 10:23 | Hospitalist Progress Note ---
Date of Service February 08, 2025 Assessment & Plan (1) Leg swelling: (2) Diabetes: (3) Hypercholesterolemia: (4) Morbid obesity: (5) Hypertension: Plan This is an 79-year-old morbidly obese patient with hypertension, hyperlipidemia, diabetes mellitus, who presented with lower extremity edema since he got discharged after having a left total hip arthroplasty 1 month ago. He was started on Lasix 4 days ago orally with no significant improvement. #Lower extremity edema Most likely volume overload The patient may have gotten IV fluids perioperatively. He was given 40 mg of IV Lasix in the emergency room with good diuretic response Will give another dose of IV Lasix 40 mg x 1 now Clinically improved Creatinine improved as well Echocardiogram is technically difficult Normal chest x-ray and no orthopnea/PND is assuring Low-salt diet #Acute kidney injury His creatinine initially went up from 1.2-1.6 Now improved. Creatinine trended down from 1.6-1.3 today. Monitor renal function closely while diuresing Retroperitoneal ultrasound was negative Ordered BMP daily Avoid nephrotoxic medications Hold chlorthalidone Further diuretics will be ordered after rechecking renal function #Benign essential hypertension Blood pressure stable Resume nifedipine Hold chlorthalidone to allow room for IV diuretics #Diabetes mellitus type 2 Hold metformin Continue sliding scale insulin VTE prophylaxis: Heparin 3 times daily CODE STATUS: DNR/DNI Admission and Anticipated Discharge Date Admission Date: February 07, 2025 Subjective Patient says that his leg swelling has improved. He would like some more Lasix today to get rid of some more fluid. He denies chest pain or shortness of breath. Review of Systems Review of Systems: All systems reviewed & are unremarkable except as noted in Subjective Physical Exam Physical Exam: General: Awake, conversant Heart: S1, S2/regular rate and rhythm, no murmur rubs or gallops Lungs: Clear to auscultation bilaterally. Normal effort Abdomen: Soft/nontender/nondistended. No hepatosplenomegaly Extremities: No clubbing/cyanosis. 2+ pitting bilateral edema with some blistering. The redness around the blistering has improved. Behavior: Appropriate, cooperative Results & Data Results & Data Vital Signs (Past 12 Hours) Vital Signs Temp Pulse Pulse Pulse Resp BP Pulse Ox 02/08/25 08:28 36.8 C 71 18 163/74 H 96 02/08/25 05:49 63 02/08/25 03:44 36.6 C 69 16 147/72 H 97 02/07/25 23:25 37.0 C 65 18 135/62 95 O2 Del Method O2 Flow Rate 02/08/25 08:28 Nasal Cannula 2 02/08/25 05:49 02/08/25 03:44 Nasal Cannula 2 02/07/25 23:25 Nasal Cannula 2 Laboratory Results Abnormal lab results 02/07/25 02/07/25 02/07/25 Range/Units 10:23 10:54 17:06 WBC 12.96 H (4.8-10.8) K/ul RBC 3.13 L (4.70-6.10) M/uL Hgb 8.9 L (14.0-18.0) g/dl POC Hgb 8.8 L (14.0-18.0) g/dl Hct 28.5 L (42.0-52.0) % POC Hct 26 L (42-52) % MCHC 31.2 L (32.0-36.0) g/dL RDW Std Deviation 46.4 H (36.4-46.3) fL Plt Count 458 H (130-400) K/uL MPV 8.4 L (9.4-12.4) fL Neut # (Auto) 9.38 H (1.40-6.50) K/uL Gregory # (Auto) 1.20 H (0.11-0.59) K/uL ESR 64 H (0-20) mm/hr POC Chloride 99 L (101-112) mmol/L Carbon Dioxide (21-32) mmol/L POC BUN 32 H (7-18) mg/dl BUN 39 H (6-23) mg/dl Creatinine 1.67 H (0.6-1.4) mg/dl POC Creatinine 1.7 H (0.6-1.3) mg/dl BUN/Creatinine Ratio 23.4 H (10-20) Glucose 124 H (70-99(Fasting)) mg/dl POC Glucose 114 H (70-99) mg/dl POC Glucose (other) 120 H (70-99) mg/dl POC Ioniz Calcium Juan 1.11 L (1.12-1.32) mmol/l C-Reactive Protein 2.35 H (0-0.5) mg/dl B-Natriuretic Peptide 106 H (0-100) pg/ml 02/07/25 02/08/25 02/08/25 Range/Units 19:58 06:10 08:07 WBC (4.8-10.8) K/ul RBC 3.17 L (4.70-6.10) M/uL Hgb 9.1 L (14.0-18.0) g/dl POC Hgb (14.0-18.0) g/dl Hct 29.4 L (42.0-52.0) % POC Hct (42-52) % MCHC 31.0 L (32.0-36.0) g/dL RDW Std Deviation 47.0 H (36.4-46.3) fL Plt Count 440 H (130-400) K/uL MPV 8.3 L (9.4-12.4) fL Neut # (Auto) (1.40-6.50) K/uL Gregory # (Auto) (0.11-0.59) K/uL ESR (0-20) mm/hr POC Chloride (101-112) mmol/L Carbon Dioxide 33 H (21-32) mmol/L POC BUN (7-18) mg/dl BUN 32 H (6-23) mg/dl Creatinine (0.6-1.4) mg/dl POC Creatinine (0.6-1.3) mg/dl BUN/Creatinine Ratio 23.7 H (10-20) Glucose 114 H (70-99(Fasting)) mg/dl POC Glucose 109 H 103 H (70-99) mg/dl POC Glucose (other) (70-99) mg/dl POC Ioniz Calcium Juan (1.12-1.32) mmol/l C-Reactive Protein (0-0.5) mg/dl B-Natriuretic Peptide (0-100) pg/ml Diagnostic Findings Chest X-Ray 02/07/25 10:36 Clinical History: Pain after fall Technique: 2 frontal views of the chest were obtained Findings: There are no confluent pulmonary infiltrates. The heart size is within normal limits. No pleural effusion or pneumothorax is seen. There is no definite pulmonary nodule. No fracture is noted. No foreign body is seen Impression: No active disease Electronically signed by Julian Flores 02-07-2025 11:40 AM Hip/Pelvis X-Ray 02/07/25 10:37 Clinical History: Pain after fall 3 views of the pelvis and left hip are submitted for review. Findings: No definite acute fracture is seen. There is some sclerosis and cortical thickening of the proximal left femoral shaft that could be due to old injury. There is a left hip total arthroplasty in expected position. There is mild right hip osteoarthritis. There is a partially visualized lumbar fusion. No other osseous abnormality is identified. There are no radiopaque foreign bodies. Impression: 1. No definite acute fracture after fall 2. Suspected old fracture of the proximal left femoral shaft 3. Left hip replacement 4. Mild right hip osteoarthritis Electronically signed by Julian Flores 02-07-2025 11:40 AM Venous Doppler Study 02/07/25 10:39 Clinical History: Swelling Technique: Venous ultrasound evaluation was performed utilizing grayscale, color Doppler and wave form evaluation. Images were also obtained with and without compression Findings: The bilateral common femoral, superficial femoral, popliteal, and visualized calf veins demonstrate normal anechoic lumens with full compressibility. Normal flow is seen on color Doppler images. Expected waveforms were produced with augmentation maneuvers Impression: No evidence of deep venous thrombosis Electronically signed by Julian Flores 02-07-2025 13:26 PM Renal Ultrasound 02/07/25 14:13 Exam(s): US RENAL EXAM: US Retroperitoneal Limited, Renal CLINICAL HISTORY: Acute kidney injury. Known horseshoe kidney. TECHNIQUE: Real-time limited ultrasound of the retroperitoneum with image documentation. COMPARISON: Renal ultrasound 06/28/2015 FINDINGS: Limitations: The examination is reportedly limited by patient's ability to position for the examination. Right kidney: The previously noted horseshoe configuration of the kidneys is again suggested. No nephrolithiasis or hydronephrosis involving the right kidney. Left kidney: No hydronephrosis or nephrolithiasis involving the left kidney. Bladder: The bladder is only mildly distended. No bladder stones. No ureteral jets identified. IMPRESSION: Limited examination demonstrates no evidence for hydronephrosis. Suspected horseshoe configuration again noted. No appreciable alteration from the prior examination. Electronically signed by: Jayme Lim MD 02/07/25 21:17 PM PG Care Time/CCT Total # of Minutes Spent Total Time Spent with Patient: Total time spent is greater than 50% in coordination of care (as documented) at patient's floor/unit and/or counseling patient: Coding Level of Care Code 43324 SUB INP/OBS CARE MIN Diagnoses Leg swelling M79.89 Type 2 diabetes mellitus without complication, without long-term current use of insulin E11.9 Diabetes mellitus type: type 2 Diabetes mellitus watermelon inspector insulin use: without skilled nursing use Diabetes mellitus complication status: without complication Hypercholesterolemia E78.00 Morbid obesity E66.01 Primary hypertension I10 Hypertension type: primary hypertension (2) Diabetes Diabetes mellitus type: type 2 Diabetes mellitus watermelon inspector insulin use: without skilled nursing use Diabetes mellitus complication status: without complication Qualified Code(s): E11.9 - Type 2 diabetes mellitus without complications (5) Hypertension Hypertension type: primary hypertension Qualified Code(s): I10 - Essential (primary) hypertension
[2025-02-08] MEDS: NIFEdipine EXTENDED REL 30 MG TABCR PO SCH (10:51)
--- NOTE | 2025-02-08 16:22 | Electrocardiogram Report ---
Test Reason : Blood Pressure : */* mmHG Vent. Rate : 63 BPM Atrial Rate : 63 BPM P-R Int : 228 ms QRS Dur : 96 ms QT Int : 426 ms P-R-T Axes : 86 16 24 degrees QTcB Int : 435 ms Sinus rhythm with 1st degree A-V block Otherwise normal ECG When compared with ECG of 02-Jul-2017 10:53, No significant change was found Confirmed by Raji Polo ([id number]) on 02/08/2025 4:21:33 PM Referred By: REFERRED SELF Confirmed By: Raji Polo
[2025-02-09 07:11] LABS: Hematocrit (blood only) 29.5 % (42.0-52.0); Hemoglobin 9.4 g/dl (14.0-18.0); Mean Corpuscular Hemoglobin 28.7 pg (25.0-34.0); Mean Corpuscular Volume 90.2 fL (80.0-100.0); Platelet Count 479 K/uL (130-400); RDW Standard Deviation 44.5 fL (36.4-46.3); Red Blood Count 3.27 M/uL (4.70-6.10); White Blood Count 9.66 K/ul (4.8-10.8)
[2025-02-09 07:32] LABS: Anion Gap 9.0 (3-11); Blood Urea Nitrogen 30.0 mg/dl (6-23); Calcium 8.8 mg/dl (8.6-10.3); Carbon Dioxide 34.0 mmol/L (21-32); Chloride 97.0 mmol/L (98-107); Creatinine Clr Calc Pharmacy 60.2 ml/min; Glucose 103.0 mg/dl (70-99(Fasting)); Potassium 3.4 mmol/L (3.5-5.1); Sodium 140.0 mmol/L (136-145)
[2025-02-09] MEDS: POTASSIUM CHLORIDE CRTAB 20 MEQ TABCR PO STA (07:53)
[2025-02-09] MEDS ORDERED: MICONAZOLE NITRATE POWDER 85 GM EXT PRN (09:49)
--- NOTE | 2025-02-09 11:49 | Hospitalist Progress Note ---
Date of Service February 09, 2025 Assessment & Plan (1) Leg swelling: (2) Diabetes: (3) Hypercholesterolemia: (4) Morbid obesity: (5) Hypertension: Plan This is an 79-year-old morbidly obese patient with hypertension, hyperlipidemia, diabetes mellitus, who presented with lower extremity edema since he got discharged after having a left total hip arthroplasty 1 month ago. He was started on Lasix 4 days ago orally with no significant improvement. #Lower extremity edema Most likely volume overload The patient may have gotten IV fluids perioperatively. He has gotten 2 doses of IV Lasix 40 mg in the last 2 days with good response Will give another dose of IV Lasix 40 mg x 1 now Clinically improved Creatinine improved as well Echocardiogram is technically difficult Normal chest x-ray and no orthopnea/PND is assuring Low-salt diet #Acute kidney injury His creatinine initially went up from 1.2-1.6 Now improved. Creatinine trended down from 1.6-1.1 today. Monitor renal function closely while diuresing Retroperitoneal ultrasound was negative Ordered BMP daily Avoid nephrotoxic medications Hold chlorthalidone Further diuretics will be ordered after rechecking renal function. Will likely switch to p.o. Lasix tomorrow #Benign essential hypertension Blood pressure stable Resumed nifedipine Hold chlorthalidone to allow room for IV diuretics Plan to discharge him off of chlorthalidone and a small dose of p.o. diuretics at the time of discharge #Diabetes mellitus type 2 Hold metformin Continue sliding scale insulin VTE prophylaxis: Heparin 3 times daily CODE STATUS: DNR/DNI Admission and Anticipated Discharge Date Admission Date: February 09, 2025 Subjective Patient feels well overall. Says that his leg swelling is going down. He is asking for another IV Lasix dose. No chest pain or shortness of breath. Review of Systems Review of Systems: All systems reviewed & are unremarkable except as noted in Subjective Physical Exam Physical Exam: General: Awake, conversant Heart: S1, S2/regular rate and rhythm, no murmur rubs or gallops Lungs: Clear to auscultation bilaterally. Normal effort Abdomen: Soft/nontender/nondistended. No hepatosplenomegaly Extremities: No clubbing/cyanosis. 2+ pitting bilateral edema with some blistering. The redness around the blistering has improved. Behavior: Appropriate, cooperative Results & Data Results & Data Vital Signs (Past 12 Hours) Vital Signs Temp Pulse Pulse Resp BP Pulse Ox O2 Del Method 02/09/25 08:14 36.9 C 79 20 102/62 97 Room Air 02/09/25 07:56 Nasal Cannula 02/09/25 07:18 72 02/09/25 02:35 36.9 C 79 18 169/75 H 99 Nasal Cannula O2 Flow Rate 02/09/25 08:14 02/09/25 07:56 2 02/09/25 07:18 02/09/25 02:35 2 Laboratory Results Abnormal lab results 02/08/25 02/08/25 02/09/25 Range/Units 12:09 20:37 06:20 RBC 3.27 L (4.70-6.10) M/uL Hgb 9.4 L (14.0-18.0) g/dl Hct 29.5 L (42.0-52.0) % MCHC 31.9 L (32.0-36.0) g/dL Plt Count 479 H (130-400) K/uL MPV 8.5 L (9.4-12.4) fL Potassium 3.4 L (3.5-5.1) mmol/L Chloride 97 L (98-107) mmol/L Carbon Dioxide 34 H (21-32) mmol/L BUN 30 H (6-23) mg/dl BUN/Creatinine Ratio 25.9 H (10-20) Glucose 103 H (70-99(Fasting)) mg/dl POC Glucose 100 H 109 H (70-99) mg/dl 02/09/25 Range/Units 08:03 RBC (4.70-6.10) M/uL Hgb (14.0-18.0) g/dl Hct (42.0-52.0) % MCHC (32.0-36.0) g/dL Plt Count (130-400) K/uL MPV (9.4-12.4) fL Potassium (3.5-5.1) mmol/L Chloride (98-107) mmol/L Carbon Dioxide (21-32) mmol/L BUN (6-23) mg/dl BUN/Creatinine Ratio (10-20) Glucose (70-99(Fasting)) mg/dl POC Glucose 107 H (70-99) mg/dl PG Care Time/CCT Total # of Minutes Spent Total Time Spent with Patient: Total time spent is greater than 50% in coordination of care (as documented) at patient's floor/unit and/or counseling patient: Coding Level of Care Code 74856 SUB INP/OBS CARE 2/35MIN Diagnoses Leg swelling M79.89 Type 2 diabetes mellitus without complication, without long-term current use of insulin E11.9 Diabetes mellitus type: type 2 Diabetes mellitus fpc insulin use: without fpc use Diabetes mellitus complication status: without complication Hypercholesterolemia E78.00 Morbid obesity E66.01 Primary hypertension I10 Hypertension type: primary hypertension (2) Diabetes Diabetes mellitus type: type 2 Diabetes mellitus label coder insulin use: without fpc use Diabetes mellitus complication status: without complication Qualified Code(s): E11.9 - Type 2 diabetes mellitus without complications (5) Hypertension Hypertension type: primary hypertension Qualified Code(s): I10 - Essential (primary) hypertension
[2025-02-09] MEDS: FUROSEMIDE 40 MG/4 ML VIAL IV ONE (11:51)
[2025-02-10 06:40] LABS: Hematocrit (blood only) 31.7 % (42.0-52.0); Hemoglobin 9.9 g/dl (14.0-18.0); Mean Corpuscular Hemoglobin 28.1 pg (25.0-34.0); Mean Corpuscular Volume 90.1 fL (80.0-100.0); Platelet Count 490 K/uL (130-400); RDW Standard Deviation 44.2 fL (36.4-46.3); Red Blood Count 3.52 M/uL (4.70-6.10); White Blood Count 10.04 K/ul (4.8-10.8)
[2025-02-10 07:05] LABS: Anion Gap 11.0 (3-11); Blood Urea Nitrogen 37.0 mg/dl (6-23); Calcium 9.0 mg/dl (8.6-10.3); Carbon Dioxide 32.0 mmol/L (21-32); Chloride 96.0 mmol/L (98-107); Creatinine Clr Calc Pharmacy 60.5 ml/min; Glucose 123.0 mg/dl (70-99(Fasting)); Potassium 3.8 mmol/L (3.5-5.1); Sodium 139.0 mmol/L (136-145)
[2025-02-10 07:47] VITALS: BP 138/74; RESP 18; TEMP 98.1; O2SAT 96
--- NOTE | 2025-02-10 09:13 | Discharge Summary ---
Date of Service February 10, 2025 Admission HPI Per Admitting Provider This is an 79-year-old morbidly obese patient with hypertension, hyperlipidemia, diabetes mellitus type 2 who presented with the above chief complaint. The patient had a left total hip arthroplasty done on 01/14. He was discharged to home. Over time, he noticed that he started developing lower extremity edema that was slowly getting worse. 4 days ago, he was seen by his PCP who started him on oral Lasix and doxycycline with no significant improvement. He thus decided to come to the emergency room. He denies fever, chills, shortness of breath, orthopnea, PND. He does have some dyspnea on exertion but that is his baseline and he attributes that to his body habitus. In the emergency room, he had screening blood tests done that showed a mildly elevated white count of 12,000, and elevated creatinine of 1.67 up from 1.25 a month ago. His BNP was slightly elevated at 106. He had a chest x-ray done that was negative. He had venous duplex ultrasound done of both legs that were negative for DVT. He is being admitted for management of lower extremity edema and fluid overload. In the ER, he got 40 mg of IV Lasix x 1 and is already having good response to it. On his way to the ER, he tripped over the curb side and fell. He suffered a small head laceration. He is not on any blood thinners. He did not want to do a CT head. Principal Diagnosis Acute diastolic congestive heart failure acute Acute kidney injury Discharge Exam General: Awake, conversant Heart: S1, S2/regular rate and rhythm, no murmur rubs or gallops Lungs: Clear to auscultation bilaterally. Normal effort Abdomen: Soft/nontender/nondistended. No hepatosplenomegaly Extremities: No clubbing/cyanosis. 2+ pitting bilateral edema with some blistering. The redness around the blistering has improved. Behavior: Appropriate, cooperative Discharge Data Allergies Allergy/AdvReac Type Severity Reaction Status Date / Time alfuzosin Allergy Mild itching Verified 02/04/25 14:53 Consultations 02/07/25 12:04 ED Decision to Admit Stat Ordered Studies Chest X-Ray 02/07/25 10:36 Clinical History: Pain after fall Technique: 2 frontal views of the chest were obtained Findings: There are no confluent pulmonary infiltrates. The heart size is within normal limits. No pleural effusion or pneumothorax is seen. There is no definite pulmonary nodule. No fracture is noted. No foreign body is seen Impression: No active disease Electronically signed by Julian Flores 02-07-2025 11:40 AM Hip/Pelvis X-Ray 02/07/25 10:37 Clinical History: Pain after fall 3 views of the pelvis and left hip are submitted for review. Findings: No definite acute fracture is seen. There is some sclerosis and cortical thickening of the proximal left femoral shaft that could be due to old injury. There is a left hip total arthroplasty in expected position. There is mild right hip osteoarthritis. There is a partially visualized lumbar fusion. No other osseous abnormality is identified. There are no radiopaque foreign bodies. Impression: 1. No definite acute fracture after fall 2. Suspected old fracture of the proximal left femoral shaft 3. Left hip replacement 4. Mild right hip osteoarthritis Electronically signed by Julian Flores 02-07-2025 11:40 AM Venous Doppler Study 02/07/25 10:39 Clinical History: Swelling Technique: Venous ultrasound evaluation was performed utilizing grayscale, color Doppler and wave form evaluation. Images were also obtained with and without compression Findings: The bilateral common femoral, superficial femoral, popliteal, and visualized calf veins demonstrate normal anechoic lumens with full compressibility. Normal flow is seen on color Doppler images. Expected waveforms were produced with augmentation maneuvers Impression: No evidence of deep venous thrombosis Electronically signed by Julian Flores 02-07-2025 13:26 PM Renal Ultrasound 02/07/25 14:13 Exam(s): US RENAL EXAM: US Retroperitoneal Limited, Renal CLINICAL HISTORY: Acute kidney injury. Known horseshoe kidney. TECHNIQUE: Real-time limited ultrasound of the retroperitoneum with image documentation. COMPARISON: Renal ultrasound 06/28/2015 FINDINGS: Limitations: The examination is reportedly limited by patient's ability to position for the examination. Right kidney: The previously noted horseshoe configuration of the kidneys is again suggested. No nephrolithiasis or hydronephrosis involving the right kidney. Left kidney: No hydronephrosis or nephrolithiasis involving the left kidney. Bladder: The bladder is only mildly distended. No bladder stones. No ureteral jets identified. IMPRESSION: Limited examination demonstrates no evidence for hydronephrosis. Suspected horseshoe configuration again noted. No appreciable alteration from the prior examination. Electronically signed by: Jayme Lim MD 02/07/25 21:17 PM 02/07/25 10:39 US venous doppler LE BI Stat 02/07/25 14:13 US renal/blad retro comp Stat Hospital Course (1) Leg swelling: (2) Diabetes: (3) Hypercholesterolemia: (4) Morbid obesity: (5) Hypertension: Plan This is an 79-year-old morbidly obese patient with hypertension, hyperlipidemia, diabetes mellitus, who presented with lower extremity edema since he got discharged after having a left total hip arthroplasty 1 month ago. He was started on Lasix 4 days ago orally with no significant improvement. # Acute diastolic congestive heart failure/HFpEF Most likely volume overload The patient may have gotten IV fluids perioperatively. He has gotten 3 doses of IV Lasix 40 mg in the last 3 days with good response He was recently started on 40 mg of Lasix p.o. Will discharge him on home dose Clinically improved Creatinine improved as well Echocardiogram is technically difficult Normal chest x-ray and no orthopnea/PND is assuring Low-salt diet #Acute kidney injury His creatinine initially went up from 1.2-1.6 Now improved. Creatinine trended down from 1.6-1.1 today. Retroperitoneal ultrasound was negative Avoid nephrotoxic medications Resume chlorthalidone #Benign essential hypertension Blood pressure stable Resumed nifedipine Resume chlorthalidone upon discharge. PCP may decide to take him off of chl orthalidone now that he is on Lasix. #Diabetes mellitus type 2 Hold metformin Continue sliding scale insulin Discharge to home today Total Time Total Time Spent Total Time Spent (In Minutes): 35 Discharge Plan Discharge Items Patient Disposition: Home - Self-Care Reason For Visit: LEG EDEMA Discharge Diagnosis: Acute diastolic congestive heart failure acute Acute kidney injury Condition on Discharge: Fair Activity: Resume your previous activity Non-emergency contact: Primary Care Provider Call non-emergency contact if: you have any medication questions and your symptoms worsen Follow-up/Referrals: Vince Arias MD [Primary Care Provider] - (Please call the office to schedule a follow up appointment.) Diet: Heart Healthy and Low Fat Addtl Attending Provider Instructions: Advised to follow-up with PCP in 1 week Pending Studies at Discharge: No Stand-Alone Forms: My [facility] [employer] Medications and DC Order Prescriptions: Continued irbesartan 300 mg tablet 300 mg PO QAM Qty: 90 3RF metformin 500 mg tablet 500 mg PO BID Qty: 180 3RF aspirin [Alberto Low Dose Aspirin] 81 mg tablet,delayed release (DR/EC) 81 mg PO BID 45 Days Qty: 90 0RF Patient Comments: 02/07- Filled 01/11 45 day supply #90 Rx Instructions: Take to prevent blood clots. acetaminophen [Tylenol Extra Strength] 500 mg tablet 1,000 mg PO TID 30 Days Qty: 180 0RF Patient Comments: 02/07- filled 01/11 30 day supply #180 Rx Instructions: Take 3 times per day to lessen pain. ondansetron 4 mg tablet,disintegrating 4 mg PO Q8 PRN (Reason: nausea) Qty: 20 1RF Patient Comments: 02/07- last filled 01/11 6 day supply Rx Instructions: Take as needed for nausea oxycodone 5 mg tablet 5 mg PO Q6 PRN (Reason: pain) Qty: 20 0RF Rx Instructions: Take as needed for pain aspirin 81 mg tablet,delayed release (DR/EC) 0 mg PO QAM Patient Comments: 02/07- OTC. unable to verify. calcium carbonate 600 mg calcium (1,500 mg) tablet 600 mg PO UD Patient Comments: 02/07- OTC. unable to verify. Rx Instructions: qam (DME) blood-glucose meter [OneTouch Verio Flex Start] Kit See Rx Instructions .ROUTE .MEDSUPPLY Qty: 1 0RF Rx Instructions: As directed furosemide 40 mg tablet 40 mg PO QAM Qty: 30 2RF multivitamin Tablet 1 tab PO UD Patient Comments: 02/07- OTC. unable to verify. Rx Instructions: qam nifedipine 30 mg tablet extended release 30 mg PO QAM chlorthalidone 50 mg tablet 50 mg PO QAM simvastatin 40 mg tablet 40 mg PO HS latanoprost 0.005 % drops 1 drp ophthalmic (eye) PM labetalol 200 mg tablet 200 mg PO BID timolol maleate 0.5 % drops 1 drp ophthalmic (eye) QAM tamsulosin [Flomax] 0.4 mg capsule 0 mg PO DAILY Patient Comments: 02/07- last filled 01/11 7 day supply Rx Instructions: Begin night BEFORE surgery to prevent urinary retention celecoxib [Celebrex] 100 mg capsule 100 mg PO BID PRN (Reason: Pain) Rx Instructions: take 1 tab twice daily for 2 weeks, then as needed after that Discontinued doxycycline hyclate 100 mg tablet 100 mg PO BID 7 Days Qty: 14 0RF Discharge Orders: Discharge Order (Routine); Ordered 02/10/25 Ordered By: Alexus Arreguin Admission Data Admit Date/Time: 02/09/25 11:38 Attending Provider: Alexus Arreguin Admit Provider: Alexus Arreguin Primary Care Provider: Vince Arias Other Providers: Alexus Arreguin Other Interventions: Discharge Summary Assessment (RN) Last Done: 02/10/25 09:24
[2025-02-10 09:25] VITALS: PULSE 69
== END 2025-02-10 09:47 | disposition home or self-care (01) | DRG 291 ==
LOC: SUATTDRO → ED 10:01 → 2N 10:01